=== PATIENT | female | born 1965 ===

== ENCOUNTER → 2020-01-14 08:23 | Outpatient (BNVA) | payer OTHER, SELFPAY | PROVIDERS: PCP Internal Medicine; Visit Provider Dietitian, Registered | DX: Z76.89 Persons encountering health services in other specified circumstances (principal) ==

== ENCOUNTER → 2020-02-15 08:16 | Outpatient (BNVA) | payer OTHER, SELFPAY | PROVIDERS: PCP Internal Medicine; Visit Provider Physician Assistant | DX: Z76.89 Persons encountering health services in other specified circumstances (principal) ==

== ENCOUNTER → 2020-03-01 11:33 | Outpatient (BNVA) | payer OTHER, SELFPAY | PROVIDERS: Visit Provider Dietitian, Registered | DX: Z76.89 Persons encountering health services in other specified circumstances (principal) ==

== ENCOUNTER → 2020-03-21 08:20 | Outpatient (BNVA) | payer OTHER, SELFPAY | PROVIDERS: PCP Internal Medicine; Visit Provider Physician Assistant | DX: Z76.89 Persons encountering health services in other specified circumstances (principal) ==

== ENCOUNTER → 2020-05-10 14:35 | Outpatient (BNVA) | payer OTHER, SELFPAY | PROVIDERS: PCP Internal Medicine; Visit Provider Dietitian, Registered ==

== ENCOUNTER → 2020-06-07 14:51 | Outpatient (BNVA) | payer OTHER, SELFPAY | PROVIDERS: PCP Internal Medicine; Visit Provider Dietitian, Registered ==

== ENCOUNTER 2020-06-13 10:42 | Outpatient (REF) | payer OTHER, SELFPAY ==
--- NOTE | ~2020-06-13 | XR_ITS ---
EXAMINATION: XR LUMBOSACRAL SPINE CLINICAL INFORMATION: Low back pain COMPARISON: Previous exam November 2018 TECHNIQUE: Three views of the lumbosacral spine. FINDINGS: Bone alignment is normal. No fracture or dislocation is seen. There is mild multilevel degenerative spondylosis. There is disc space narrowing at T12-L1 and L1-L2. There is lower lumbar spine facet arthritis. XR/XR lumbar spine 2-3V IMPRESSION: Degenerative changes.
[2020-06-13 11:43] LABS: MANUAL DIFF FLAG NO
[2020-06-13 11:49] LABS: Basophils Percent Auto 0.4 % (0-2); Eosinophils Absolute Auto 0.2 X10*3/uL (0.0-0.4); Eosinophils Percent Auto 3.5 % (0-4); Hematocrit 42.3 % (37-47); Imm Gran Abs Auto 0.01 X10*3/uL (0.00-0.03); Imm Gran Pct Auto 0.2 % (0.0-0.4); Lymphocytes Absolute Auto 1.6 X10*3/uL (1.2-4.9); Lymphocytes Percent Auto 35.4 % (20-40); Mean Corpuscular HGB Conc 33.1 g/dl (31.0-35.0); Mean Corpuscular Volume 93.6 fL (80-98); Mean Platelet Volume 9.6 fL (9.4-12.3); Monocytes Absolute Auto 0.5 X10*3/uL (0.1-1.2); Monocytes Percent Auto 10.2 % (2-11); Neutrophils Absolute Auto 2.3 X10*3/uL (2.0-8.3); Neutrophils Percent Auto 50.3 % (45-73); Platelet Count 211 X10*3/uL (160-400); Red Blood Count 4.52 X10*6/uL (4.20-5.50); Red Cell Distribution Width 13.2 % (11.0-16.0); White Blood Count 4.5 X10*3/uL (4.8-10.8)
[2020-06-13 12:24] LABS: Alanine Aminotransferase 25 U/L (0-31); Alkaline Phosphatase 58 U/L (39-117); Anion Gap 11 (12-20); Aspartate Amino Transferase 20 U/L (5-31); Bilirubin Total 0.7 mg/dL (0.0-1.0); Blood Urea Nitrogen 19 mg/dL (9-16); Carbon Dioxide 29 mmol/L (22-29); Chloride 106 mmol/L (96-108); Cholesterol 222 mg/dL; Estimated Glomerular Filt Rate > 60; Glucose Fasting 110 mg/dL (60-99); HDL Cholesterol 49 mg/dL; LDL Cholesterol Calculated 157 mg/dl; Potassium 4.1 mmol/L (3.3-5.1); Sodium 142 mmol/L (135-145); Total Protein 6.5 g/dL (6.5-8.0); Triglycerides 83 mg/dL
[2020-06-13 13:06] LABS: Folate 13.6 ng/mL (> or = 4.0); Vitamin B12 332 pg/mL (200-900)
[2020-06-17 11:57] LABS: Vitamin B1 8 nmol/L (8-30)
[2020-06-18 12:56] LABS: Vitamin D 25-OH, D2 <4 ng/mL; Vitamin D 25-OH, D3 48 ng/mL; Vitamin D 25-OH, Total 48 ng/mL (30-100)
== END 2020-06-13 10:43 | disposition home or self-care (01) ==
LOC: HO.LAB 10:42
PROVIDERS: PCP Internal Medicine; Visit Provider Internal Medicine
DX: E51.9 Thiamine deficiency, unspecified (principal); E53.8 Deficiency of other specified B group vitamins; I10 Essential (primary) hypertension; E78.00 Pure hypercholesterolemia, unspecified; M54.5 Low back pain; E78.5 Hyperlipidemia, unspecified; E55.9 Vitamin D deficiency, unspecified
CPT/HCPCS: 36415; 72100; 80053; 80061; 82306; 82607; 82746; 84425; 85025

== ENCOUNTER 2020-07-19 09:31 | Outpatient (REF) | payer OTHER, SELFPAY ==
--- NOTE | ~2020-07-19 | MM_ITS ---
EXAMINATION: MM SCREENING DIGITAL BREAST TOMOSYNTHESIS, BILATERAL CLINICAL INFORMATION: Screening. Asymptomatic. The lifetime risk of breast cancer based on the Tyrer-Cuzick Model is 7%. COMPARISON: Mammography: 11/07/2018, 10/08/2017, 04/27/2016 TECHNIQUE: Digital breast tomosynthesis is performed in both the craniocaudal and mediolateral oblique views along with computer-aided detection (CAD). Synthesized 2D images are generated from the tomosynthesis. FINDINGS: There are scattered areas of fibroglandular density (ACR BI-RADS breast composition Category b). There are no significant masses, abnormal calcifications, or other abnormalities. Parenchymal pattern is similar to prior studies. No developing density. No significant changes. MM/MM tomosynthesis screening BI IMPRESSION: No mammographic evidence of malignancy. ASSESSMENT: BI-RADS 1: Negative RECOMMENDATION: Routine annual mammography screening. This patient's information was entered into a reminder system with a target due date for their next mammogram.
== END 2020-07-19 09:32 | disposition home or self-care (01) ==
LOC: HO.MAMMO 09:31
PROVIDERS: PCP Internal Medicine; Visit Provider Internal Medicine
DX: Z12.31 Encounter for screening mammogram for malignant neoplasm of breast (principal)
CPT/HCPCS: 77063; 77067

== ENCOUNTER → 2020-07-29 08:17 | Outpatient (BNVA) | payer OTHER, SELFPAY | PROVIDERS: PCP Internal Medicine; Visit Provider Physician Assistant ==

== ENCOUNTER 2020-10-04 12:07 | Outpatient (REF) | payer OTHER, SELFPAY ==
[2020-10-04 13:21] LABS: MANUAL DIFF FLAG NO
[2020-10-04 13:30] LABS: Basophils Percent Auto 0.6 % (0-2); Eosinophils Absolute Auto 0.1 X10*3/uL (0.0-0.4); Eosinophils Percent Auto 2.1 % (0-4); Hemoglobin 14.4 g/dl (12.0-16.0); Imm Gran Abs Auto 0.01 X10*3/uL (0.00-0.03); Imm Gran Pct Auto 0.2 % (0.0-0.4); Lymphocytes Absolute Auto 1.3 X10*3/uL (1.2-4.9); Lymphocytes Percent Auto 27.9 % (20-40); Mean Corpuscular HGB Conc 32.7 g/dl (31.0-35.0); Mean Corpuscular Hemoglobin 30.6 pg (27.0-33.0); Mean Corpuscular Volume 93.6 fL (80-98); Mean Platelet Volume 9.7 fL (9.4-12.3); Monocytes Absolute Auto 0.4 X10*3/uL (0.1-1.2); Monocytes Percent Auto 8.9 % (2-11); Neutrophils Absolute Auto 2.8 X10*3/uL (2.0-8.3); Neutrophils Percent Auto 60.3 % (45-73); Platelet Count 224 X10*3/uL (160-400); Red Cell Distribution Width 13.2 % (11.0-16.0); White Blood Count 4.7 X10*3/uL (4.8-10.8)
[2020-10-04 13:34] LABS: Estimated Average Glucose 105 mg/dL; Hemoglobin A1c % 5.3 %
[2020-10-04 13:43] LABS: Alanine Aminotransferase 21 U/L (0-31); Albumin Level 4.3 g/dL (3.5-5.0); Alkaline Phosphatase 68 U/L (39-117); Anion Gap 9 (12-20); Aspartate Amino Transferase 21 U/L (5-31); Bilirubin Total 0.8 mg/dL (0.0-1.0); Blood Urea Nitrogen 19 mg/dL (9-16); Calcium 9.5 mg/dL (8.4-10.2); Carbon Dioxide 28 mmol/L (22-29); Chloride 110 mmol/L (96-108); Cholesterol 214 mg/dL; Estimated Glomerular Filt Rate > 60; Glucose Fasting 100 mg/dL (60-99); HDL Cholesterol 53 mg/dL; LDL Cholesterol Calculated 145 mg/dl; Potassium 4.8 mmol/L (3.3-5.1); Sodium 142 mmol/L (135-145); Total Protein 6.9 g/dL (6.5-8.0); Triglycerides 83 mg/dL
[2020-10-04 13:49] LABS: C Reactive Protein 0.38 mg/dL (< or = 0.50); Iron 107 mcg/dL (30-160); Percent Iron Saturation 37 % (15-50); Total Iron Binding Capacity 289 mcg/dL (228-428); Unsaturated Iron Binding 182 ug/dL
[2020-10-04 13:56] LABS: Ferritin 140 ng/mL (10-250); TSH reflex Free T4 1.66 uIU/mL (0.32-4.0)
[2020-10-04 14:18] LABS: Folate 13.8 ng/mL (> or = 4.0); Vitamin B12 390 pg/mL (200-900)
[2020-10-05 09:31] LABS: Insulin Level Total 14.7 uIU/mL
[2020-10-05 14:27] LABS: Calcium (PTHI) 9.2 mg/dL (8.6-10.4); PTHI 43 pg/mL (14-64)
[2020-10-07 01:16] LABS: Zinc 74 mcg/dL (60-130)
[2020-10-08 15:22] LABS: Vitamin D 25-OH, D2 <4 ng/mL; Vitamin D 25-OH, D3 39 ng/mL; Vitamin D 25-OH, Total 39 ng/mL (30-100)
[2020-10-09 00:12] LABS: Vitamin A 39 mcg/dL (38-98)
[2020-10-12 12:27] LABS: Vitamin B1 8 nmol/L (8-30)
== END 2020-10-04 12:08 | disposition home or self-care (01) ==
LOC: HO.LAB 12:07
PROVIDERS: Physician Assistant; PCP Internal Medicine; Visit Provider Internal Medicine
DX: I10 Essential (primary) hypertension (principal); E78.5 Hyperlipidemia, unspecified; E55.9 Vitamin D deficiency, unspecified; E66.01 Morbid (severe) obesity due to excess calories
CPT/HCPCS: 36415; 80053; 80061; 82306; 82607; 82728; 82746; 83036; 83525; 83540; 83970; 84425; 84443; 84590; 84630; 85025; 86140

== ENCOUNTER 2020-12-26 11:30 | Outpatient (RCR) | payer OTHER, SELFPAY ==
--- NOTE | 2021-01-10 07:11 | MHC.OT.DC ---
[address] [phone] F: [phone] Occupational Therapy Discharge Note Provider: Dr Galileo Loya Diagnosis: Bilateral hand pain Date of Evaluation: 12/21/20 Date of Discharge: 01/10/21 Treatments to Date: 2 Discharge Status: Patient Elected to Stop Discharge Summary: Jason was seen for occupational therapy to address bilateral hand pain. On assessment, she is observed to have flat affect, forward rounded posture with ambulation and in sitting and grimaces with light movement. She was unable to complete 50% AROM on initial eval, but on return visit could demo full shoulder AROM against gravity. We have initiated light strengthening program and discussed importance of daily movement of the body. She has been givien ROM and genlte hand strengthening exercies, but at this time hand pain is likely due to poor posture and decreaed core and trunk strength. She has self discharged at this time, noting therapy is not helping . Electronically Signed By: Clarice Marshall OTR/L Please Sign and return to therapist, thank you for your referral.
== END 2021-01-10 07:13 | disposition home or self-care (01) ==
LOC: HO.OT 11:30
PROVIDERS: PCP Internal Medicine; Visit Provider Internal Medicine
DX: M79.643 Pain in unspecified hand (principal)
CPT/HCPCS: 97110; 97166

== ENCOUNTER 2021-03-30 15:09 | Outpatient (REF) | payer OTHER, SELFPAY ==
[2021-03-30 15:28] LABS: MANUAL DIFF FLAG NO
[2021-03-30 16:38] LABS: Basophils Percent Auto 0.8 % (0-2); Eosinophils Absolute Auto 0.1 X10*3/uL (0.0-0.4); Eosinophils Percent Auto 1.8 % (0-4); Hematocrit 43.6 % (37.0-47.0); Hemoglobin 14.3 g/dl (12.0-16.0); Imm Gran Abs Auto 0.01 X10*3/uL (0.00-0.03); Imm Gran Pct Auto 0.2 % (0.0-0.4); Lymphocytes Absolute Auto 1.4 X10*3/uL (1.2-4.9); Mean Corpuscular HGB Conc 32.8 g/dl (31.0-35.0); Mean Corpuscular Hemoglobin 30.5 pg (27.0-33.0); Mean Platelet Volume 10.2 fL (9.4-12.3); Monocytes Absolute Auto 0.5 X10*3/uL (0.1-1.2); Monocytes Percent Auto 8.8 % (2-11); Neutrophils Absolute Auto 3.1 x10*3/uL (2.0-8.3); Neutrophils Percent Auto 60.4 % (45-73); Platelet Count 214 X10*3/uL (160-400); Red Blood Count 4.69 X10*6/uL (4.20-5.50); Red Cell Distribution Width 13.3 % (11.0-16.0); White Blood Count 5.1 X10*3/uL (4.8-10.8)
[2021-03-30 17:11] LABS: Alanine Aminotransferase 21 U/L (0-31); Albumin Level 4.2 g/dL (3.5-5.0); Alkaline Phosphatase 68 U/L (39-117); Anion Gap 12 (12-20); Aspartate Amino Transferase 22 U/L (5-31); Bilirubin Total 0.9 mg/dL (0.0-1.0); Blood Urea Nitrogen 21 mg/dL (9-16); Calcium 9.7 mg/dL (8.4-10.2); Carbon Dioxide 27 mmol/L (22-29); Chloride 107 mmol/L (96-108); Cholesterol 211 mg/dL; Estimated Glomerular Filt Rate > 60; Glucose Fasting 83 mg/dL (60-99); HDL Cholesterol 47 mg/dL; LDL Cholesterol Calculated 147 mg/dl; Potassium 4.2 mmol/L (3.3-5.1); Sodium 142 mmol/L (135-145); Total Protein 7.2 g/dL (6.5-8.0); Triglycerides 85 mg/dL
[2021-04-05 14:15] LABS: Vitamin D 25-OH, D2 <4 ng/mL; Vitamin D 25-OH, D3 36 ng/mL; Vitamin D 25-OH, Total 36 ng/mL (30-100)
== END 2021-03-30 15:10 | disposition home or self-care (01) ==
LOC: HO.LAB 15:09
PROVIDERS: PCP Internal Medicine; Visit Provider Internal Medicine
DX: E66.9 Obesity, unspecified (principal); E55.9 Vitamin D deficiency, unspecified; E78.5 Hyperlipidemia, unspecified
CPT/HCPCS: 36415; 80053; 80061; 82306; 85025

== ENCOUNTER 2021-09-25 12:06 | Outpatient (REF) | payer OTHER, SELFPAY ==
--- NOTE | ~2021-09-25 | XR_ITS ---
EXAMINATION: BILATERAL KNEE X-RAY CLINICAL INFORMATION: Pain COMPARISON: Previous right knee x-ray from 2010 TECHNIQUE: 3 views of each knee FINDINGS: Right: Bone alignment is normal. No fracture or dislocation is seen. There are mild degenerative changes at the medial femoral tibial and patellofemoral joints with small osteophytes. There is a small osteophyte at the quadriceps tendon insertion to the patella. There is no joint effusion. Left: Bone alignment is normal. No fracture or disc there are mild degenerative changes at the patellofemoral joint with small osteophytes. There is a small osteophyte at the quadriceps tendon insertion to the patella. There is no joint effusion. XR/XR knee LT 3V IMPRESSION: Mild degenerative changes.
--- NOTE | ~2021-09-25 | XR_ITS ---
EXAMINATION: XR LUMBOSACRAL SPINE CLINICAL INFORMATION: Spondylosis COMPARISON: Previous x-ray most recent June 2020 TECHNIQUE: 3 views of the lumbar spine FINDINGS: Bone alignment is normal. No fracture or dislocation is seen. Degenerative disc disease at T12-L1 and L1-L2 and L2-L3. There is lower lumbar spine facet arthritis. There are degenerative changes of visualized lower thoracic spine. XR/XR lumbar spine 2-3V IMPRESSION: Degenerative changes.
--- NOTE | ~2021-09-25 | XR_ITS ---
EXAMINATION: BILATERAL KNEE X-RAY CLINICAL INFORMATION: Pain COMPARISON: Previous right knee x-ray from 2010 TECHNIQUE: 3 views of each knee FINDINGS: Right: Bone alignment is normal. No fracture or dislocation is seen. There are mild degenerative changes at the medial femoral tibial and patellofemoral joints with small osteophytes. There is a small osteophyte at the quadriceps tendon insertion to the patella. There is no joint effusion. Left: Bone alignment is normal. No fracture or disc there are mild degenerative changes at the patellofemoral joint with small osteophytes. There is a small osteophyte at the quadriceps tendon insertion to the patella. There is no joint effusion. XR/XR knee RT 3V IMPRESSION: Mild degenerative changes.
[2021-09-25 12:21] LABS: MANUAL DIFF FLAG NO
[2021-09-25 13:23] LABS: Basophils Percent Auto 0.7 % (0-2); Eosinophils Absolute Auto 0.1 X10*3/uL (0.0-0.4); Eosinophils Percent Auto 2.4 % (0-4); Hematocrit 44.9 % (37.0-47.0); Hemoglobin 14.8 g/dl (12.0-16.0); Imm Gran Abs Auto 0.01 X10*3/uL (0.00-0.03); Imm Gran Pct Auto 0.2 % (0.0-0.4); Lymphocytes Absolute Auto 1.1 X10*3/uL (1.2-4.9); Lymphocytes Percent Auto 25.2 % (20-40); Mean Corpuscular Hemoglobin 30.4 pg (27.0-33.0); Mean Corpuscular Volume 92.2 fL (80.0-98.0); Monocytes Absolute Auto 0.4 X10*3/uL (0.1-1.2); Monocytes Percent Auto 9.5 % (2-11); Neutrophils Absolute Auto 2.8 x10*3/uL (2.0-8.3); Platelet Count 249 X10*3/uL (160-400); Red Blood Count 4.87 X10*6/uL (4.20-5.50); Red Cell Distribution Width 13.1 % (11.0-16.0); White Blood Count 4.5 X10*3/uL (4.8-10.8)
[2021-09-25 13:40] LABS: C Reactive Protein 0.42 mg/dL (< or = 0.50); Rheumatoid Factor < 15.0 IU/mL (<15.0)
[2021-09-25 14:29] LABS: Erythrocyte Sedimentation Rate 6 MM/HR (0-20)
[2021-09-27 22:03] LABS: ANA Titer 2 1:40 titer; Anti Nuclear Antibody Screen POSITIVE (NEGATIVE); Anti Nuclear Antibody Titer 1:40 titer
[2021-09-28 14:11] LABS: Cyclic Citrullinated Peptide <16 UNITS
== END 2021-09-25 12:07 | disposition home or self-care (01) ==
LOC: HO.LAB 12:06
PROVIDERS: PCP Internal Medicine; Visit Provider Internal Medicine Rheumatology
DX: M25.50 Pain in unspecified joint (principal); M47.816 Spondylosis without myelopathy or radiculopathy, lumbar region; M25.561 Pain in right knee; M25.562 Pain in left knee
CPT/HCPCS: 36415; 72100; 73562; 85025; 85652; 86038; 86039; 86140; 86200; 86431; 99202

== ENCOUNTER 2021-10-18 11:42 | Outpatient (REF) | payer OTHER, SELFPAY ==
[2021-10-18 13:11] LABS: Creatinine Urine 254.84 mg/dL; Protein/Creatinine Ratio, Ur 0.04 (<0.2); Total Protein Urine Random 11 mg/dL (<12)
[2021-10-18 13:17] LABS: Estimated Glomerular Filt Rate > 60
[2021-10-20 14:03] LABS: Anti DNA DS Antibody 2 IU/mL; SM/Ribonucleoprotein Ab <1.0 NEG AI (<1.0 NEG); Smith Protein <1.0 NEG AI (<1.0 NEG)
== END 2021-10-18 11:43 | disposition home or self-care (01) ==
LOC: HO.LAB 11:42
PROVIDERS: PCP Internal Medicine; Visit Provider Internal Medicine Rheumatology
DX: R76.8 Other specified abnormal immunological findings in serum (principal); M47.816 Spondylosis without myelopathy or radiculopathy, lumbar region; M17.0 Bilateral primary osteoarthritis of knee; M79.7 Fibromyalgia; I10 Essential (primary) hypertension; E53.8 Deficiency of other specified B group vitamins
CPT/HCPCS: 36415; 82565; 84156; 86225; 86235; 99212

== ENCOUNTER 2021-11-16 10:19 | Outpatient (REF) | payer OTHER, SELFPAY ==
[2021-11-16 11:35] LABS: Alanine Aminotransferase 22 U/L (0-31); Albumin Level 4.1 g/dL (3.5-5.0); Alkaline Phosphatase 69 U/L (39-117); Anion Gap 12 (12-20); Aspartate Amino Transferase 20 U/L (5-31); Bilirubin Total 0.6 mg/dL (0.0-1.0); Blood Urea Nitrogen 18 mg/dL (9-16); Calcium 9.1 mg/dL (8.4-10.2); Carbon Dioxide 25 mmol/L (22-29); Chloride 110 mmol/L (96-108); Cholesterol 204 mg/dL; Estimated Glomerular Filt Rate > 60; Glucose Fasting 111 mg/dL (60-99); HDL Cholesterol 46 mg/dL; LDL Cholesterol Calculated 143 mg/dl; Potassium 4.4 mmol/L (3.3-5.1); Sodium 143 mmol/L (135-145); Total Protein 6.8 g/dL (6.5-8.0); Triglycerides 75 mg/dL
[2021-11-16 11:57] LABS: Vitamin D 25-OH Total 31.3 ng/mL (>30)
[2021-11-16 12:08] LABS: Protein/Creatinine Ratio, Ur 0.04 (<0.2); Total Protein Urine Random 10 mg/dL (<12)
[2021-11-16 12:24] LABS: Folate 11.2 ng/mL (> or = 4.0); Vitamin B12 300 pg/mL (200-900)
[2021-11-18 08:32] LABS: Anti DNA DS Antibody 2 IU/mL; SM/Ribonucleoprotein Ab <1.0 NEG AI (<1.0 NEG); Smith Protein <1.0 NEG AI (<1.0 NEG)
== END 2021-11-16 10:20 | disposition home or self-care (01) ==
LOC: HO.LAB 10:19
PROVIDERS: Internal Medicine Rheumatology; PCP Internal Medicine; Visit Provider Internal Medicine
DX: E78.5 Hyperlipidemia, unspecified (principal); E55.9 Vitamin D deficiency, unspecified; E53.8 Deficiency of other specified B group vitamins; G43.009 Migraine without aura, not intractable, without status migrainosus; R76.8 Other specified abnormal immunological findings in serum
CPT/HCPCS: 36415; 80053; 80061; 82306; 82607; 82746; 84156; 86225; 86235

== ENCOUNTER 2022-07-09 14:24 | Outpatient (REF) | payer OTHER, SELFPAY ==
--- NOTE | ~2022-07-09 | XR_ITS ---
EXAMINATION: XR KNEE, RIGHT CLINICAL INFORMATION: Pain. COMPARISON: Radiographs dated 09/11/2009. TECHNIQUE: AP and lateral views of the right knee. FINDINGS: Bony alignment and mineralization are normal. The lateral, medial and patellofemoral joint space compartments are well-maintained. There is mild peripheral osteophyte formation of the lateral and patellofemoral compartments. There is a moderate joint effusion. A 4 mm loose body is seen within the medial joint space compartment. No fracture or dislocation is seen. There is no significant varus or valgus configuration. There is no foreign body. XR/XR knee RT 2V IMPRESSION: 1. There is mild osteoarthritic change of the lateral and patellofemoral joint space compartments. 2. There is a moderate right knee joint effusion. 3. A 4 mm loose body is noted. 4. There is no significant varus or valgus configuration.
[2022-07-09 16:17] LABS: Alanine Aminotransferase 22 U/L (0-31); Alkaline Phosphatase 71 U/L (39-117); Anion Gap 14 (12-20); Aspartate Amino Transferase 20 U/L (5-31); Blood Urea Nitrogen 19 mg/dL (9-16); Calcium 9.3 mg/dL (8.4-10.2); Carbon Dioxide 24 mmol/L (22-29); Chloride 109 mmol/L (96-108); Cholesterol 226 mg/dL; Estimated Glomerular Filt Rate > 60; Glucose Fasting 95 mg/dL (60-99); HDL Cholesterol 49 mg/dL; LDL Cholesterol Calculated 158 mg/dl; Potassium 4.5 mmol/L (3.3-5.1); Sodium 142 mmol/L (135-145); Total Protein 6.8 g/dL (6.5-8.0); Triglycerides 97 mg/dL
== END 2022-07-09 14:25 | disposition home or self-care (01) ==
LOC: HO.XRAY 14:24
PROVIDERS: PCP Internal Medicine; Visit Provider Internal Medicine
DX: Z00.00 Encounter for general adult medical examination without abnormal findings (principal); M25.561 Pain in right knee; E55.9 Vitamin D deficiency, unspecified; E78.5 Hyperlipidemia, unspecified
CPT/HCPCS: 36415; 73560; 80053; 80061; 82306

== ENCOUNTER 2022-07-10 10:47 | Outpatient (REF) | payer OTHER, SELFPAY ==
--- NOTE | ~2022-07-10 | MM_ITS ---
EXAMINATION: MM SCREENING DIGITAL BREAST TOMOSYNTHESIS, BILATERAL CLINICAL INFORMATION: Screening. Asymptomatic. The lifetime risk of breast cancer based on the Tyrer-Cuzick Model is 6.3%. COMPARISON: Mammography: July 19, 2020 and studies dating back to April 27, 2016 TECHNIQUE: Digital breast tomosynthesis is performed in both the craniocaudal and mediolateral oblique views along with computer-aided detection (CAD). Synthesized 2D images are generated from the tomosynthesis. FINDINGS: There are scattered areas of fibroglandular density (ACR BI-RADS breast composition Category b). There are no significant masses, abnormal calcifications, or other abnormalities. MM/MM tomosynthesis screening BI IMPRESSION: No significant changes from prior exam. ASSESSMENT: BI-RADS 1: Negative RECOMMENDATION: Routine annual mammography screening. This patient's information was entered into a reminder system with a target due date for their next mammogram.
== END 2022-07-10 10:48 | disposition home or self-care (01) ==
LOC: HO.MAMMO 10:47
PROVIDERS: PCP Internal Medicine; Visit Provider Internal Medicine
DX: Z12.31 Encounter for screening mammogram for malignant neoplasm of breast (principal)
CPT/HCPCS: 77063; 77067

== ENCOUNTER → 2022-07-20 10:48 | Outpatient (BNVA) | payer OTHER, SELFPAY | PROVIDERS: PCP Internal Medicine; Visit Provider Orthopaedic Surgery | DX: M17.11 Unilateral primary osteoarthritis, right knee (principal); M25.461 Effusion, right knee | CPT/HCPCS: 99202 ==

== ENCOUNTER 2022-10-02 11:19 | Emergency (ER) | payer OTHER, SELFPAY ==
--- NOTE | ~2022-10-02 | CT_ITS ---
EXAMINATION: CT ABDOMEN AND PELVIS WITH CONTRAST CLINICAL INFORMATION: Right upper quadrant pain COMPARISON: None available. TECHNIQUE: Multidetector volumetric images were obtained from the superior aspect of the liver through the pubic symphysis following administration 85 mL of Omnipaque 350 intravenous contrast. Sagittal and coronal reformatted images were obtained on the technologist's workstation. Oral contrast: Yes This CT examination was performed using dose optimization techniques as appropriate, variously including the following: *Automated exposure control *Adjustment of mA and/or kV according to patient size (this includes techniques or standardized protocols for targeted exams where dose is matched to indication/reason for exam; i.e. extremities or head) *Use of iterative reconstruction technique DLP: 717 mGy-cm FINDINGS: LUNG BASES: The visualized lung bases are unremarkable. LIVER, GALLBLADDER, AND BILIARY TREE: Fatty liver. Cholecystectomy. No biliary duct dilatation. PANCREAS: Unremarkable. SPLEEN: Unremarkable. ADRENAL GLANDS: Unremarkable. KIDNEYS AND URETERS: Excreted contrast in the collecting systems. Left renal peripelvic cysts. No imaging follow-up recommended. BLADDER: Unremarkable. GASTROINTESTINAL TRACT: The small and large bowel are unremarkable. The appendix is unremarkable. Postsurgical changes from gastric sleeve. Suture line seen above the diaphragm suggestive of an esophageal hernia. No fluid collection. No free air ABDOMINAL WALL: No significant hernia is appreciated. Postsurgical changes. LYMPH NODES: Normal. VASCULAR: Unremarkable. PELVIC VISCERA: Unremarkable. OSSEOUS STRUCTURES: Degenerative changes of the spine. CT/CT abdomen pelvis w IV con IMPRESSION: Postsurgical changes from gastric sleeve. Esophageal hernia. Fatty liver. Fleischner guidelines were followed.
[2022-10-02 11:21] VITALS: BP 146/82; PULSE 70; RESP 16; TEMP 36; O2SAT 96; BMI 32.5
--- NOTE | 2022-10-02 11:22 | ED_ITS ---
HPI - General Adult General Chief complaint: Abdominal Pain Stated complaint: abd pain, vomiting with blood Time Seen by Provider: 10/02/22 12:51 Source: patient, RN notes reviewed and old records reviewed Mode of arrival: ambulatory Limitations: no limitations History of Present Illness HPI narrative: Patient is a 56-year-old female with history of HTN, fibromyalgia, gastric banding with subsequent removal, sleeve gastrectomy, hiatal hernia repair, cholecystectomy presenting with right upper quadrant abdominal pain, nausea, and vomiting since yesterday evening. States pain radiates to back. She reports one episode of black stool several days ago. Reports emesis this morning was brown and coffee colored as well as blood tinged. She denies bright red rectal bleeding. She states pain is currently 9/10, has ongoing nausea. Reports some fatigue, denies dizziness or lightheadedness. Denies syncope. Denies chest pain or dyspnea. Denies back or flank pain. Denies dysuria, hematuria, or other urinary symptoms. MD complaint: RUQ abdominal pain Onset (ago): day(s) Location: abdomen Radiation: back Severity: severe Severity scale (1-10): 9 Quality: stabbing Pain Consistency: constant Relieving factors: rest Exacerbating factors: movement Associated symptoms: nausea/vomiting and weakness (fatigue) Treatments prior to arrival: none Related Data Home Medications Medication Instructions Recorded Confirmed amitriptyline 25 mg tablet 25 mg PO DAILY 01/13/20 07/09/22 buspirone 10 mg tablet 10 mg PO BID 01/13/20 07/09/22 prazosin 5 mg capsule 5 mg PO BEDTIME 01/13/20 07/09/22 clonazepam 1 mg tablet 1 mg PO BEDTIME PRN 06/27/21 07/09/22 escitalopram oxalate 10 mg tablet 10 mg PO DAILY 06/27/21 07/09/22 Previous Rx's Medication Instructions Recorded mecobalamin (vitamin B12) 1,000 1,000 mcg PO DAILY #30 tabs 10/20/20 mcg chewable tablet Shower Chair #1 ea 06/27/21 dicyclomine 20 mg tablet 20 mg PO QID 30 days #120 tabs 06/27/21 simethicone 80 mg chewable tablet 80 mg PO .four times a day PRN 11/13/21 abdominal distention 30 days #120 tabs albuterol sulfate 90 mcg/actuation 1 puff PO Q4H PRN bronchospasm 90 12/11/21 aerosol inhaler days #8.5 grams fluticasone propionate 44 1 puff inhalation BID 30 days 01/12/22 mcg/actuation HFA aerosol inhaler #10.6 grams (Flovent HFA) pantoprazole 40 mg tablet,delayed 40 mg PO DAILY 90 days #90 tabs 06/08/22 release cholecalciferol (vitamin D3) 25 25 mcg PO DAILY 90 days #90 caps 07/03/22 mcg (1,000 unit) capsule hydrochlorothiazide 25 mg tablet 25 mg PO QAM #90 tabs 07/04/22 sumatriptan succinate 50 mg tablet 50 mg PO DAILY PRN for migraine #9 07/04/22 tabs meloxicam 15 mg tablet 15 mg PO DAILY 90 days #90 tabs 07/09/22 gabapentin 600 mg tablet 600 mg PO TID 90 days #270 tabs 08/26/22 lidocaine 5 % topical patch 1 patch topical DAILY 30 days #30 08/26/22 ea simvastatin 10 mg tablet 10 mg PO BEDTIME 90 days #90 tabs 08/26/22 multivitamin with folic acid 400 1 tab PO DAILY 90 days #90 tabs 08/30/22 mcg tablet (Tab-A-Ananda) methocarbamol 750 mg tablet 750 mg PO Q8H 30 days #90 tabs 09/16/22 ondansetron 4 mg disintegrating 4 mg PO Q8H PRN nausea and 10/02/22 tablet vomiting #10 tabs Allergies Allergy/AdvReac Type Severity Reaction Status Date / Time acetaminophen [From Tylenol] Allergy Intermediate Hives Verified 10/02/22 11:23 aloe Allergy Intermediate Rash Verified 10/02/22 11:23 duloxetine [From Cymbalta] Allergy Intermediate Rash, Verified 10/02/22 11:23 Itching lavender (Lavandula Allergy Intermediate Rash Verified 10/02/22 11:23 angustifolia) seafood Allergy Intermediate Rash Verified 10/02/22 11:23 Sulfa (Sulfonamide Allergy Intermediate rash Verified 10/02/22 11:23 Antibiotics) codeine Allergy Mild ITCH Verified 10/02/22 11:23 [From Tylenol-Codeine] Iodinated Contrast Media Allergy Mild ITCH AND Verified 10/02/22 11:23 [IV Dye, Iodine Containing] RASH latex [LATEX] Allergy Mild RASH Verified 10/02/22 11:23 Review of Systems Review of Systems: As per HPI. Yes all other systems are reviewed and are negative Constitutional: Constitutional: Reports as per HPI [facility] Past Medical History Medical History B12 deficiency Essential hypertension Fibromyalgia Hand pain Hypovitaminosis D Insomnia Intestinal malabsorption following gastrectomy Low back pain Migraines Mild recurrent major depression Neuropathy Obesity with body mass index (BMI) of 30.0 to 39.9 Osteoarthritis of back Osteoarthritis of lumbar spine Physical exam Polyarthralgia Pre-diabetes Pure hypercholesterolemia Thiamine deficiency Surgical History History of removal of laparoscopic gastric banding device History of repair of hiatal hernia History of sleeve gastrectomy Hx of section Hx of cholecystectomy Hx of laparoscopic adjustable gastric banding S/P laparoscopic sleeve gastrectomy S/P ANA-BSO Family History Family History Father Murder Mother Diabetes Hypertension Brother Diabetes Hypertension Son No problems noted. Other Mental health disorder Social History Social History Housing: Apartment Housing Other:: complex housing Alcohol intake: never Patient Tobacco Use Status: Former Tobacco user Tobacco use type: Cigarette Smoked in Last 30 Days: No e-Cigarette/Vaping Use: Never Used Second Hand Smoke Exposure: No Use of substances other than those prescribed or required for medical reasons: No Advance Directives: No Advance Directives Information Provided: Yes Patient : No service: No Current occupational status: disabled Cognitive needs: Yes Hearing needs: No Vision needs: No Physical Exam ED Vital Signs: Vital Signs - 24 hr 10/02/22 11:21 10/02/22 13:47 10/02/22 14:59 Temperature 96.8 F 98.2 F 97.7 F Pulse Rate 70 58 61 Respiratory Rate 16 16 14 Blood Pressure 146/82 H 130/67 165/93 H Pulse Oximetry 96 95 100 Oxygen Delivery Method Room Air Room Air Room Air 10/02/22 16:21 Temperature 97.8 F Pulse Rate 62 Respiratory Rate 20 Blood Pressure 115/73 Pulse Oximetry 96 Oxygen Delivery Method Room Air BMI result Body Mass Index 32.5 Vital signs have been reviewed and appear to be correct. Blood pressure elevated. Heart rate normal. Respiratory rate normal. Temperature normal. Oxygen saturation normal. Const General: cooperative, healthy appearing and no acute distress Orientation/consciousness: oriented to person, oriented to place, oriented to time and patient oriented x3 Limitations: no limitations HENMT Head: Yes normocephalic and Yes atraumatic Ears: external ears normal General nose exam: Normal external nose present Face and sinus: Yes face symmetric Mouth: oropharynx normal and moist mucous membranes Throat: Yes uvula midline Eyes Pupils: Equal, round and reactive pupils present Neck Neck: Yes normal visual inspection and Yes supple Resp Effort & Inspection: normal respiratory effort and able to speak in complete sentences Auscultation: clear to auscultation bilaterally Cardio Rate: regular rate Rhythm: regular rhythm Heart sounds: S1 normal heart sound present and S2 normal heart sound present GI Other: Rectal exam chaperoned by Jelena chemistry technical officer. Inspection: Yes normal to inspection, Yes obesity, Yes scar, No visible herniation and No visible pulsation Palpation (GI): Soft to palpation, Tenderness to palpation present (GI) in the RUQ; with no rebound tenderness, no guarding, no hernias and no masses Auscultation: normoactive bowel sounds Rectal Exam - Female: visual inspection normal, normal sphincter tone and No External hemorrhoid(s) present General: Yes no CVA tenderness Back/Spine/Pelvis Back: no CVA tenderness Skin General skin exam: elasticity normal and turgor normal Neuro General: oriented to person, oriented to place, oriented to time, patient oriented x3, moves all extremities, no focal motor deficits and CN's II-XI intact bilaterally Cranial nerves: Yes Equal, round and reactive pupils present Cognition (Neuro): normal cognition Extrem General: Yes full ROM, Yes no pedal edema and Yes no calf tenderness Psych Mental Status: mental status grossly normal Affect: normal affect Thought process: Normal thought process present Course Course Course Narrative: RME- 56 year old female presents for evaluation of upper abdominal pain and vomiting. Reports she is s/p gastric bypass as well as cholecystectomy. She also reports she is vomiting brown like blood. Plan for labs including coags and type and screen. Patient is well appearing with stable vitals 14:59 Urine positive for moderate leukocytes and WBCs, however epithelial cells also present to likely contamination as patient denies any urinary symptoms. Troponin negative, given that symptoms began last night, no necessity for delta trop. No leukocytosis, labs otherwise unremarkable, stool negative for occult blood. 16:40 CT shows fatty liver and esophageal hernia. Discussed results with patient and and all questions answered. Patient states pain and nausea have improved. Will PO challenge and if tolerated feel patient is stable for discharge home with GI and bariatric surgery follow up. Return precautions discussed at bedside. Patient agreeable with plan. Medications Administered Discontinued Medications Generic Name Dose Route Start Last Admin Trade Name Geraldine PRN Reason Stop Dose Admin Barium Sulfate 450 ml 10/02/22 15:54 10/02/22 15:55 Barium Sulfate Oral (Briones) 450 Ml Oral.Susp PO 10/02/22 15:55 450 ml ONCE ONE Administration Diphenhydramine HCl 25 mg 10/02/22 13:27 10/02/22 14:34 Diphenhydramine Hcl 50 Mg/Ml Vial IVPUSH 10/02/22 13:28 25 mg ONCE ONE Administration Famotidine 20 mg 10/02/22 13:27 10/02/22 14:34 Famotidine/Pf 20 Mg/2 Ml Vial IVPUSH 10/02/22 13:28 20 mg ONCE ONE Administration Iohexol 100 ml 10/02/22 15:53 10/02/22 15:54 Iohexol 350 Mg/Ml 100 Ml Infus..Btl IV 10/02/22 15:54 85 ml ONCE ONE Administration Methylprednisolone Sodium Succinate 125 mg 10/02/22 13:27 10/02/22 14:34 Methylprednisolone Sod Succ 125 Mg/2 Ml Vial IVPUSH 10/02/22 13:28 125 mg ONCE ONE Administration Morphine Sulfate 4 mg 10/02/22 12:58 10/02/22 14:35 Morphine Sulfate 4 Mg/Ml Cartridge IVPUSH 10/02/22 12:59 4 mg ONCE ONE Administration Protocol Ondansetron HCl 4 mg 10/02/22 12:58 10/02/22 14:34 Ondansetron Hcl 4 Mg/2 Ml Vial IVPUSH 10/02/22 12:59 4 mg ONCE ONE Administration Medical Decision Making Medical Decision Making MDM Narrative: Patient is a 56-year-old female with history of HTN, fibromyalgia, gastric banding with subsequent removal, sleeve gastrectomy, hiatal hernia repair, cholecystectomy presenting with right upper quadrant abdominal pain, nausea, and vomiting since yesterday evening. On exam patient is awake, A+Ox3, nontoxic appearing, BP mildly elevated, VS otherwise WNL, afebrile, LS CTA, abdomen soft, TTP RUQ, no CVA tenderness. Concern for upper GI bleed, anemia, choledocolithiasis, PUD, obstruction, malignancy/mass. Less likely ACS but will obtain EKG and troponin, pancreatitis but will obtain lipase. Plan: EKG, labs, OBS, CT abdomen/pelvis with PO and IV contrast, pain and nausea control. Patient has allergic reaction of rash to iodinated contrast, will premedicate with benadryl, famotidine and solumedrol. Differential Diagnosis Differential Diagnoses: The differential diagnosis associated with the presen tation includes As above. Admission/Observation Consideration of admission/observation: Escalation of care including admission/ observation considered Considered upon arrival given report of bloody/brown emesis and abdominal pain. Lab Data MDM Lab Attestation statement: I reviewed the patient's lab results. 10/02/22 13:16 10/02/22 13:16 Labs: Lab Results 10/02/22 10/02/22 10/02/22 Range/Units 13:16 13:16 13:16 WBC 4.7 L (4.8-10.8) X10*3/uL RBC 4.61 (4.20-5.50) X10*6/uL Hgb 14.2 (12.0-16.0) g/dl Hct 42.7 (37.0-47.0) % MCV 92.6 (80.0-98.0) fL MCH 30.8 (27.0-33.0) pg MCHC 33.3 (31.0-35.0) g/dl RDW 13.6 (11.0-16.0) % Plt Count 215 (160-400) X10*3/uL MPV 9.5 (9.4-12.3) fL Immature Gran % (Auto) 0.4 (0.0-0.4) % Neut % (Auto) 55.8 (45-73) % Lymph % (Auto) 29.9 (20-40) % [place] % (Auto) 11.0 (2-11) % Eos % (Auto) 2.3 (0-4) % Baso % (Auto) 0.6 (0-2) % Lymph # (Auto) 1.4 (1.2-4.9) X10*3/uL [place] # (Auto) 0.5 (0.1-1.2) X10*3/uL Eos # (Auto) 0.1 (0.0-0.4) X10*3/uL Baso # (Auto) 0.0 (0.0-0.2) X10*3/uL Abs Immat Gran (auto) 0.02 (0.00-0.03) X10*3/uL Absolute Neuts (auto) 2.6 (2.0-8.3) x10*3/uL Absolute Nucleated RBC 0.000 (0.0-0.012) X10*3/uL Nucleated RBC % (auto) 0.0 (0.0-0.2) /100WBC PT 11.4 (10.0-13.1) SEC INR 1.0 (0.9-1.1) APTT 29.4 (26.0-36.4) SEC Sodium 144 (135-145) mmol/L Potassium 4.0 (3.3-5.1) mmol/L Chloride 113 H (96-108) mmol/L Carbon Dioxide 25 (22-29) mmol/L Anion Gap 10 L (12-20) BUN 17 H (9-16) mg/dL Creatinine 0.84 (0.5-1.4) mg/dL Estim Creat Clear Calc 75.5 Estimated GFR > 60 Random Glucose 98 (60-115) mg/dL Calcium 9.2 (8.4-10.2) mg/dL Total Bilirubin 1.0 (0.0-1.0) mg/dL AST 23 (5-31) U/L ALT 25 (0-31) U/L Alkaline Phosphatase 62 (39-117) U/L Troponin I High Sens (<3.5-17.0) ng/L Total Protein 7.0 (6.5-8.0) g/dL Albumin 4.0 (3.5-5.0) g/dL Lipase 30 (8-78) U/L Urine Color Urine Appearance Urine pH (5.0-9.0) Ur Specific [place] (1.005-1.025) Urine Protein (Neg-Trace) mg/dL Urine Glucose (UA) (Negative) mg/dL Urine Ketones (Negative) mg/dL Urine Blood (Negative) Urine Nitrite (Negative) Ur Leukocyte Esterase (Negative) Urine RBC (0-2) /HPF Urine WBC (0-5) /HPF Ur Squamous Epith Cells (0-2) /HPF Urine Bacteria (None Seen) Hyaline Casts (0-2) /LPF Urine Test (NEGATIVE) Stool Occult Blood (NEGATIVE) Blood Type Antibody Screen 10/02/22 10/02/22 10/02/22 Range/Units 13:16 13:38 13:38 WBC (4.8-10.8) X10*3/uL RBC (4.20-5.50) X10*6/uL Hgb (12.0-16.0) g/dl Hct (37.0-47.0) % MCV (80.0-98.0) fL MCH (27.0-33.0) pg MCHC (31.0-35.0) g/dl RDW (11.0-16.0) % Plt Count (160-400) X10*3/uL MPV (9.4-12.3) fL Immature Gran % (Auto) (0.0-0.4) % Neut % (Auto) (45-73) % Lymph % (Auto) (20-40) % [place] % (Auto) (2-11) % Eos % (Auto) (0-4) % Baso % (Auto) (0-2) % Lymph # (Auto) (1.2-4.9) X10*3/uL [place] # (Auto) (0.1-1.2) X10*3/uL Eos # (Auto) (0.0-0.4) X10*3/uL Baso # (Auto) (0.0-0.2) X10*3/uL Abs Immat Gran (auto) (0.00-0.03) X10*3/uL Absolute Neuts (auto) (2.0-8.3) x10*3/uL Absolute Nucleated RBC (0.0-0.012) X10*3/uL Nucleated RBC % (auto) (0.0-0.2) /100WBC PT (10.0-13.1) SEC INR (0.9-1.1) APTT (26.0-36.4) SEC Sodium (135-145) mmol/L Potassium (3.3-5.1) mmol/L Chloride (96-108) mmol/L Carbon Dioxide (22-29) mmol/L Anion Gap (12-20) BUN (9-16) mg/dL Creatinine (0.5-1.4) mg/dL Estim Creat Clear Calc Estimated GFR Random Glucose (60-115) mg/dL Calcium (8.4-10.2) mg/dL Total Bilirubin (0.0-1.0) mg/dL AST (5-31) U/L ALT (0-31) U/L Alkaline Phosphatase (39-117) U/L Troponin I High Sens (<3.5-17.0) ng/L Total Protein (6.5-8.0) g/dL Albumin (3.5-5.0) g/dL Lipase (8-78) U/L Urine Color Yellow Urine Appearance Cloudy Urine pH 6.0 (5.0-9.0) Ur Specific [place] >= 1.030 H (1.005-1.025) Urine Protein Negative (Neg-Trace) mg/dL Urine Glucose (UA) Negative (Negative) mg/dL Urine Ketones Trace (Negative) mg/dL Urine Blood Negative (Negative) Urine Nitrite Negative (Negative) Ur Leukocyte Esterase Moderate (2+) H (Negative) Urine RBC 3-5 H (0-2) /HPF Urine WBC >50 H (0-5) /HPF Ur Squamous Epith Cells 6-10 (0-2) /HPF Urine Bacteria 1+ (None Seen) Hyaline Casts 0-2 (0-2) /LPF Urine Test NEGATIVE (NEGATIVE) Stool Occult Blood (NEGATIVE) Blood Type A Positive Antibody Screen NEGATIVE 10/02/22 10/02/22 Range/Units 14:02 14:02 WBC (4.8-10.8) X10*3/uL RBC (4.20-5.50) X10*6/uL Hgb (12.0-16.0) g/dl Hct (37.0-47.0) % MCV (80.0-98.0) fL MCH (27.0-33.0) pg MCHC (31.0-35.0) g/dl RDW (11.0-16.0) % Plt Count (160-400) X10*3/uL MPV (9.4-12.3) fL Immature Gran % (Auto) (0.0-0.4) % Neut % (Auto) (45-73) % Lymph % (Auto) (20-40) % [place] % (Auto) (2-11) % Eos % (Auto) (0-4) % Baso % (Auto) (0-2) % Lymph # (Auto) (1.2-4.9) X10*3/uL [place] # (Auto) (0.1-1.2) X10*3/uL Eos # (Auto) (0.0-0.4) X10*3/uL Baso # (Auto) (0.0-0.2) X10*3/uL Abs Immat Gran (auto) (0.00-0.03) X10*3/uL Absolute Neuts (auto) (2.0-8.3) x10*3/uL Absolute Nucleated RBC (0.0-0.012) X10*3/uL Nucleated RBC % (auto) (0.0-0.2) /100WBC PT (10.0-13.1) SEC INR (0.9-1.1) APTT (26.0-36.4) SEC Sodium (135-145) mmol/L Potassium (3.3-5.1) mmol/L Chloride (96-108) mmol/L Carbon Dioxide (22-29) mmol/L Anion Gap (12-20) BUN (9-16) mg/dL Creatinine (0.5-1.4) mg/dL Estim Creat Clear Calc Estimated GFR Random Glucose (60-115) mg/dL Calcium (8.4-10.2) mg/dL Total Bilirubin (0.0-1.0) mg/dL AST (5-31) U/L ALT (0-31) U/L Alkaline Phosphatase (39-117) U/L Troponin I High Sens < 2.7 (<3.5-17.0) ng/L Total Protein (6.5-8.0) g/dL Albumin (3.5-5.0) g/dL Lipase (8-78) U/L Urine Color Urine Appearance Urine pH (5.0-9.0) Ur Specific [place] (1.005-1.025) Urine Protein (Neg-Trace) mg/dL Urine Glucose (UA) (Negative) mg/dL Urine Ketones (Negative) mg/dL Urine Blood (Negative) Urine Nitrite (Negative) Ur Leukocyte Esterase (Negative) Urine RBC (0-2) /HPF Urine WBC (0-5) /HPF Ur Squamous Epith Cells (0-2) /HPF Urine Bacteria (None Seen) Hyaline Casts (0-2) /LPF Urine Test (NEGATIVE) Stool Occult Blood NEGATIVE (NEGATIVE) Blood Type Antibody Screen Independent Interpretation I performed an independent interpretation of an: EKG and CT Scan Interpretation: EKG: sinus bradycardia, flipped T waves in V1, V2, normal CO interval, no evidence of STEMI I independently reviewed the CT scan and agree with the radiologist's interpretation. Radiology Impression Discussion of test interpretation with radiology: I have reviewed the radiologist's reading. Radiologist Impression: CT/CT abdomen pelvis w IV con IMPRESSION: Postsurgical changes from gastric sleeve. Esophageal hernia. Fatty liver. ? Fleischner guidelines were followed. External Record Review External record reviewed: Inpatient record, Office record and Outpatient record Prescription Management I considered prescription management with: Pain Medication Discharge Plan Discharge Clinical Impression: Abdominal pain, Nausea & vomiting Patient Disposition: Still a Patient Instructions: Acute Nausea and Vomiting (ED), Abdominal Pain (ED) Additional Instructions: You have been evaluated in the emergency department today for nausea, vomiting, and abdominal pain. You are being prescribed ondansetron which you can use as per the prescription instructions for nausea. Please follow up with your primary care provider within two days. You should also follow up with your bariatric surgeon as well as the vendor specialist. Return to the emergency department if you experience worsening or uncontrolled pain, inability to tolerate fluids by mouth, difficulty breathing, fevers 100.4? F or greater, recurrent vomiting, or any other concerning symptoms. Prescriptions: New ondansetron 4 mg tablet,disintegrating 4 mg PO Q8H PRN (Reason: nausea and vomiting) Qty: 10 0RF No Action mecobalamin (vitamin B12) 1,000 mcg tablet,chewable 1,000 mcg PO DAILY Qty: 30 5RF simethicone 80 mg tablet,chewable 80 mg PO .four times a day PRN (Reason: abdominal distention) 30 Days Qty: 120 8RF albuterol sulfate 90 mcg/actuation HFA aerosol inhaler 1 puff PO Q4H PRN (Reason: bronchospasm) 90 Days Qty: 8.5 3RF Flovent HFA 44 mcg/actuation HFA aerosol inhaler 1 puff inhalation BID 30 Days Qty: 10.6 4RF Rx Instructions: administer with spacer pantoprazole 40 mg tablet,delayed release (DR/EC) 40 mg PO DAILY 90 Days Qty: 90 1RF cholecalciferol (vitamin D3) 25 mcg (1,000 unit) capsule 25 mcg PO DAILY 90 Days Qty: 90 1RF hydrochlorothiazide 25 mg tablet 25 mg PO QAM Qty: 90 3RF sumatriptan succinate 50 mg tablet 50 mg PO DAILY PRN (Reason: for migraine) Qty: 9 6RF gabapentin 600 mg tablet 600 mg PO TID 90 Days Qty: 270 0RF simvastatin 10 mg tablet 10 mg PO BEDTIME 90 Days Qty: 90 1RF lidocaine 5 % adhesive patch,medicated 1 patch topical DAILY 30 Days Qty: 30 1RF Rx Instructions: leave on most painful area for up to 12 hrs multivitamin with folic acid [Tab-A-Ananda] 400 mcg tablet 1 tab PO DAILY 90 Days Qty: 90 3RF methocarbamol 750 mg tablet 750 mg PO Q8H 30 Days Qty: 90 1RF meloxicam 15 mg tablet 15 mg PO DAILY 90 Days Qty: 90 0RF escitalopram oxalate 10 mg tablet 10 mg PO DAILY clonazepam 1 mg tablet 1 mg PO BEDTIME PRN dicyclomine 20 mg tablet 20 mg PO QID 30 Days Qty: 120 6RF (DME) Shower Chair [facility] [place] See Rx Instructions .Route Qty: 1 0RF Rx Instructions: As directed prazosin 5 mg capsule 5 mg PO BEDTIME buspirone 10 mg tablet 10 mg PO BID amitriptyline 25 mg tablet 25 mg PO DAILY Referrals: [facility] [Provider Group]
[2022-10-02 13:21] LABS: MANUAL DIFF FLAG NO
[2022-10-02 13:29] LABS: Basophils Percent Auto 0.6 % (0-2); Eosinophils Absolute Auto 0.1 X10*3/uL (0.0-0.4); Eosinophils Percent Auto 2.3 % (0-4); Hematocrit 42.7 % (37.0-47.0); Hemoglobin 14.2 g/dl (12.0-16.0); Imm Gran Abs Auto 0.02 X10*3/uL (0.00-0.03); Imm Gran Pct Auto 0.4 % (0.0-0.4); Lymphocytes Absolute Auto 1.4 X10*3/uL (1.2-4.9); Lymphocytes Percent Auto 29.9 % (20-40); Mean Corpuscular HGB Conc 33.3 g/dl (31.0-35.0); Mean Corpuscular Hemoglobin 30.8 pg (27.0-33.0); Mean Corpuscular Volume 92.6 fL (80.0-98.0); Mean Platelet Volume 9.5 fL (9.4-12.3); Monocytes Absolute Auto 0.5 X10*3/uL (0.1-1.2); Neutrophils Absolute Auto 2.6 x10*3/uL (2.0-8.3); Neutrophils Percent Auto 55.8 % (45-73); Platelet Count 215 X10*3/uL (160-400); Red Blood Count 4.61 X10*6/uL (4.20-5.50); Red Cell Distribution Width 13.6 % (11.0-16.0); White Blood Count 4.7 X10*3/uL (4.8-10.8)
[2022-10-02 13:32] LABS: Prothrombin Time 11.4 SEC (10.0-13.1)
[2022-10-02 13:35] LABS: Partial Thromboplastin Time 29.4 SEC (26.0-36.4)
[2022-10-02 13:41] LABS: Alanine Aminotransferase 25 U/L (0-31); Alkaline Phosphatase 62 U/L (39-117); Anion Gap 10 (12-20); Aspartate Amino Transferase 23 U/L (5-31); Blood Urea Nitrogen 17 mg/dL (9-16); Calcium 9.2 mg/dL (8.4-10.2); Carbon Dioxide 25 mmol/L (22-29); Chloride 113 mmol/L (96-108); Creatinine Clr Calc Pharmacy 75.5; Estimated Glomerular Filt Rate > 60; Glucose Random 98 mg/dL (60-115); Lipase 30 U/L (8-78); Sodium 144 mmol/L (135-145)
[2022-10-02 13:45] LABS: UPreg QC Valid YES
[2022-10-02 13:46] LABS: Appearance Urine Cloudy; Color Urine Yellow; Glucose Urine UA Negative (Negative); Leukocyte Esterase Urine Moderate (2+) (Negative); Nitrite Urine Negative (Negative); Specific Gravity - Urine >= 1.030 (1.005-1.025); UMIC TRIGGER UACC YES; Urine Blood Negative (Negative); Urine Ketones Trace mg/dL (Negative); Urine Pregnancy NEGATIVE (NEGATIVE); Urine Protein Negative (Neg-Trace)
[2022-10-02 13:47] VITALS: BP 130/67; PULSE 58; RESP 16; TEMP 36.8; O2SAT 95
--- NOTE | 2022-10-02 13:47 | ECG_ITS ---
Test Reason : abdominal pain Blood Pressure : / mmHG Vent. Rate : 052 BPM Atrial Rate : 052 BPM P-R Int : 154 ms QRS Dur : 074 ms QT Int : 426 ms P-R-T Axes : 041 023 025 degrees QTc Int : 396 ms Sinus bradycardia Low voltage QRS Borderline ECG When compared with ECG of 29-APR-2018 12:26, No significant change was found Referred By: Sujata Perea Electronically Signed By:REJI BOLAÑOS
[2022-10-02 13:50] LABS: Bacteria Urine 1+ (None Seen); Hyaline Casts Urine 0-2 /LPF (0-2); UACC Culture Trigger YES; WBC Urine >50 /HPF (0-5)
[2022-10-02 14:09] LABS: OBS Int Ctl Valid YES; OBS1 NEGATIVE (NEGATIVE)
[2022-10-02] MEDS: methylPREDNISolone Sod Succ 125 MG/2 ML VIAL IVPUSH (14:34)
[2022-10-02] MEDS: diphenhydrAMINE HCL 50 MG/ML VIAL 25 MG IVPUSH (14:34)
[2022-10-02] MEDS: ondansetron HCL 4 MG/2 ML VIAL IVPUSH (14:34)
[2022-10-02] MEDS: Famotidine/PF 20 MG/2 ML VIAL IVPUSH (14:34)
[2022-10-02] MEDS: Morphine Sulfate 4 MG/ML CARTRIDGE IVPUSH (14:35)
[2022-10-02 14:52] LABS: Troponin-I High Sensitivity < 2.7 ng/L (<3.5-17.0)
[2022-10-02 14:59] VITALS: BP 165/93; PULSE 61; RESP 14; TEMP 36.5; O2SAT 100
[2022-10-02] MEDS: iohexoL 350 MG/ML 100 ML INFUS..BTL IV (15:54)
[2022-10-02] MEDS: Barium Sulfate Oral (Berry) 450 ML ORAL.SUSP PO (15:55)
[2022-10-02 16:21] VITALS: BP 115/73; PULSE 62; RESP 20; TEMP 36.6; O2SAT 96
== END 2022-10-02 17:35 | disposition home or self-care (01) ==
PROVIDERS: Physician Assistant; Registered Nurse Emergency; Emergency Provider Emergency Medicine; PCP Internal Medicine
DX: R10.11 Right upper quadrant pain (principal); R00.1 Bradycardia, unspecified; K92.0 Hematemesis; Z79.899 Other long term (current) drug therapy; Z87.891 Personal history of nicotine dependence
CPT/HCPCS: 36415; 74177; 80053; 81001; 81025; 82272; 83690; 84484; 85025; 85610; 85730; 86850; 86900; 86901; 87086; 93005; 96374; 96375; 99285; J1200; J2270; J2405; J2930; Q9967

== ENCOUNTER 2022-10-18 14:00 | Outpatient (REF) | payer OTHER, SELFPAY ==
[2022-10-22 12:43] LABS: Vitamin B1 11 nmol/L (8-30)
[2022-10-23 00:33] LABS: Zinc 63 mcg/dL (60-130)
[2022-10-23 22:13] LABS: Vitamin A 34 mcg/dL (38-98)
== END 2022-10-18 14:01 | disposition home or self-care (01) ==
LOC: HO.LAB 14:00
PROVIDERS: PCP Internal Medicine; Visit Provider Physician Assistant Surgical
DX: E66.9 Obesity, unspecified (principal); K21.9 Gastro-esophageal reflux disease without esophagitis; Z98.84 Bariatric surgery status
CPT/HCPCS: 36415; 82306; 82607; 82746; 83970; 84425; 84590; 84630; 99212

== ENCOUNTER 2022-11-06 12:05 | Outpatient (AMB) | payer OTHER, SELFPAY ==
[2022-11-06 12:43] VITALS: BP 110/80; BMI 31.9
--- NOTE | 2022-11-06 12:43 | MHC.PC.OV ---
Vital Signs 11/06/22 12:43 Height 5 ft 3 in Weight 180 lb BMI 31.9 BP 110/80 Blood Pressure Location Lt brachial Position Sitting Intake Visit Reasons: depression,labs Intake Note: Patient here for a follow up depression, labs Supervisor [employer] Required: No Accompanied by: Son Allergies acetaminophen [From Tylenol] Allergy (Intermediate, Verified 11/06/22 12:55) Hives aloe Allergy (Intermediate, Verified 11/06/22 12:55) Rash duloxetine [From Cymbalta] Allergy (Intermediate, Verified 11/06/22 12:55) Rash, Itching lavender (Lavandula angustifolia) Allergy (Intermediate, Verified 11/06/22 12:55) Rash seafood Allergy (Intermediate, Verified 11/06/22 12:55) Rash Sulfa (Sulfonamide Antibiotics) Allergy (Intermediate, Verified 11/06/22 12:55) rash codeine [From Tylenol-Codeine] Allergy (Mild, Verified 11/06/22 12:55) ITCH Iodinated Contrast Media [IV Dye, Iodine Containing] Allergy (Mild, Verified 11/06/22 12:55) ITCH AND RASH latex [LATEX] Allergy (Mild, Verified 11/06/22 12:55) RASH Medication List - Last Reconciled 11/06/22 by Magali Loya MD albuterol sulfate 90 mcg/actuation 1 puff PO Q4H PRN 90 days amitriptyline 25 mg PO DAILY buspirone 10 mg PO BID cholecalciferol (vitamin D3) 25 mcg PO DAILY 90 days clonazepam 1 mg PO BEDTIME PRN dicyclomine 20 mg PO QID 30 days escitalopram oxalate 10 mg PO DAILY fluticasone propionate 44 mcg/actuation (Flovent HFA) 1 puff inhalation BID 30 days gabapentin 600 mg PO TID 90 days hydrochlorothiazide 25 mg PO QAM lidocaine 5% 1 patch topical DAILY 30 days mecobalamin (vitamin B12) 1,000 mcg PO DAILY meloxicam 15 mg PO DAILY 90 days methocarbamol 750 mg PO Q8H 30 days multivitamin with folic acid 400 mcg (Tab-A-Ananda) 1 tab PO DAILY 90 days ondansetron 4 mg PO Q8H PRN pantoprazole 40 mg PO DAILY 90 days prazosin 5 mg PO BEDTIME Shower Chair As directed simethicone 80 mg PO .four times a day PRN 30 days simvastatin 10 mg PO BEDTIME 90 days sucralfate 10 mL PO BID sumatriptan succinate 50 mg PO DAILY PRN vitamin A palmitate 10,000 units PO DAILY Tobacco use date assessed: 07/09/22 Dental Screening Dental Screen Date: 11/06/22 Did you have a dental visit in the last 12 months?: Yes Did you have a dental problem in the last 6 months where you did not have access to dental care?: No Was dental information given to patient?: Patient has dentist HPI HPI Comments History of Present Illness Details This is a 57-year-old female with hypertension, fibromyalgia, GERD and mild recurrent major depression that comes today accompanied by son for follow-up on her conditions. She walks with a cane for gait stability due to knee osteoarthritis. Blood pressure stable. GERD stable with PPIs. Depression stable with escitalopram. Depression is follow by Psychiatry. Still has diffuse joint pain due to fibromyalgia even though she is on gabapentin. FORMERLY [facility] Medical History B12 deficiency Essential hypertension Fibromyalgia Hand pain Hypovitaminosis D Insomnia Intestinal malabsorption following gastrectomy Low back pain Migraines Mild recurrent major depression Neuropathy Obesity with body mass index (BMI) of 30.0 to 39.9 Osteoarthritis of back Osteoarthritis of lumbar spine Physical exam Polyarthralgia Pre-diabetes Pure hypercholesterolemia Thiamine deficiency Surgical History History of removal of laparoscopic gastric banding device History of repair of hiatal hernia History of sleeve gastrectomy Hx of section Hx of cholecystectomy Hx of laparoscopic adjustable gastric banding S/P laparoscopic sleeve gastrectomy S/P ANA-BSO Family History Father Murder Mother Diabetes Hypertension Brother Diabetes Hypertension Son No problems noted. Other Mental health disorder Social History Housing: Apartment Housing Other:: complex housing Alcohol intake: never Patient Tobacco Use Status: Former Tobacco user Tobacco use type: Cigarette e-Cigarette/Vaping Use: Never Used Second Hand Smoke Exposure: No service: No Current occupational status: disabled Cognitive needs: Yes Hearing needs: No Vision needs: No Questionnaire Thrive Questionnaire Date Thrive assessed: 07/09/22 LUIS-7 AMB Questionnaire LUIS-7 Date LUIS - 7 assessed: 07/09/22 Source: Developed by Drs. Kelton Felix, Dede Zhang, Dov Mera and colleagues, with an educational sudarshan from [employer]. Review of Systems Const All systems reviewed & are unremarkable except as noted in HPI and below Eyes Reports no additional complaints, Denies change in vision and Denies other visual disturbances Card Denies chest pain at rest, Denies chest pain with activity, Denies edema, Denies irregular heart rhythm, Denies claudication, Denies dyspnea, Denies dyspnea on exertion, Denies orthopnea, Denies paroxysmal nocturnal dyspnea and Denies slow heart rate Resp Denies cough, Denies dyspnea and Denies dyspnea on exertion GI Denies abdominal pain, Denies change in bowel habits, Denies excessive flatus, Denies nausea and Denies vomiting Denies urinary incontinence, Denies urinary hesitancy and Denies urinary urgency Musc Denies abnormal gait, Reports back pain, Denies atrophy, Denies deformity, Reports arthralgias and Denies limited range of motion Skin/Breast Denies bleeding lesions, Denies changing lesions and Denies rash Neuro Denies abnormal gait and Denies lack of coordination Physical exam (Primary Care) Vital Signs: Last Vital Signs BP 110/80 11/06/22 12:43 BMI result Body Mass Index 31.9 Tobacco/Smoking Status: Tobacco use Status Tobacco use date assessed 07/09/22 11/06/22 12:48 Patient Tobacco Use Status Former Tobacco user 11/06/22 12:48 Tobacco use type Cigarette 11/06/22 12:48 e-Cigarette/Vaping Use Never Used 11/06/22 12:48 Thrive Assessment: Date of Thrive Assessment Date Thrive assessed 07/09/22 11/06/22 12:48 Const Limitations: ambulation with cane Eyes General: appearance normal, both eyes and all related structures Eyelids: Yes eyelids normal Conjunctivae: conjunctivae normal Neck Neck: Yes normal visual inspection and Yes supple Resp Effort & Inspection: normal respiratory effort Auscultation: clear to auscultation bilaterally Cardio Jugular venous distension: no JVD Rate: regular rate Rhythm: regular rhythm Heart sounds: S1 normal heart sound present and S2 normal heart sound present Extrem General: Yes full ROM Assessment and Plan Assessment & Plan (1) Mild recurrent major depression: Code(s): F33.0 - Major depressive disorder, recurrent, mild Plan: Continue escitalopram. Follow-up with psychiatry. (2) GERD (gastroesophageal reflux disease): Code(s): K21.9 - Gastro-esophageal reflux disease without esophagitis Plan: Continue PPIs. (3) Essential hypertension: Code(s): I10 - Essential (primary) hypertension Plan: Continue hydrochlorothiazide. Blood pressure goal is equal or less than 130/80. (4) Fibromyalgia: Code(s): M79.7 - Fibromyalgia Plan: Continue gabapentin Orders: Orders XR DEXA axial skeleton Today N95.9 - Unspecified menopausal and perimenopausal disorder Coding Level of Care Code Est Pt Level 4 (08601) Diagnoses Mild recurrent major depression F33.0 GERD (gastroesophageal reflux disease) K21.9 Essential hypertension I10 Fibromyalgia M79.7 Time Spent (min) 21
== END 2022-11-06 13:03 | disposition home or self-care (01) ==
PROVIDERS: PCP Internal Medicine; Visit Provider Internal Medicine
DX: F33.0 Major depressive disorder, recurrent, mild (principal); K21.9 Gastro-esophageal reflux disease without esophagitis; I10 Essential (primary) hypertension; M79.7 Fibromyalgia
CPT/HCPCS: 99214

== ENCOUNTER 2022-11-21 10:24 | Outpatient (REF) | payer OTHER, SELFPAY ==
--- NOTE | ~2022-11-21 | MM_ITS ---
EXAMINATION: BONE DENSITOMETRY CLINICAL INDICATION: Unspecified menopausal and perimenopausal disorder. COMPARISON: This is the patient's baseline examination. TECHNIQUE: Using a [employer] DXA System (software version: 13.1) manufactured by [employer], dual-energy x-ray absorptiometry was performed of the lumbar spine and left hip. The images are of good technical quality. Summary results are attached. FINDINGS: LEFT FEMUR, NECK: BMD 0.971 g/cm2, Z-score 0.3, T-score -0.5, normal. LEFT FEMUR, TOTAL: BMD 1.094 g/cm2, Z-score 1.1, T-score 0.7, normal. AP SPINE L1-L4: BMD 1.406 g/cm2, Z-score 2.4, T-score 1.9, normal. IDENTIFIED RISK FACTORS: Early menopause, secondary osteoporosis, low calcium intake, hysterectomy, bilateral oophorectomy. HISTORY OF FRACTURE: None listed. MEDICATIONS: Calcium supplements or multivitamin, vitamin D. MM/XR DEXA axial skeleton IMPRESSION: 1. DIAGNOSIS: Normal bone density based on the lowest T-score value of -0.5 in the femoral neck applying World Health Organization criteria. 2. 10-YEAR FRACTURE RISK PREDICTION, FRAX: According to the guidelines, FRAX calculation should only be performed on patients in the osteopenia bone density category. Therefore, FRAX was not performed on this patient. 3. Treatment Recommendations: NOF guidelines recommend consideration for treatment in postmenopausal women and men age 50 and older presenting with the following: -A hip or vertebral (clinical or morphometric) fracture. -T-score less than or equal to -2.5 at the femoral neck or spine after appropriate evaluation to exclude secondary causes. -Low bone mass at the hip or spine and a 10-year fracture probability by FRAX of greater than or equal to 3% for hip fracture or greater than or equal to 20% for major osteoporotic fracture based on the [place] adapted WHO algorithm. 4. Other Recommendations: All treatment decisions require clinical judgment and consideration of individual patient factors, including patient preferences, comorbidities, previous drug use, risk factors not captured in the FRAX model (e.g. frailty, falls, vitamin D deficiency, increased bone turnover, interval significant decline in bone density) and possible under or overestimation of fracture risk by FRAX. FUTURE SCAN RECOMMENDATION: People with diagnosed cases of osteoporosis or at high risk for fracture should have regular bone mineral density tests. For patients eligible for Medicare, routine testing is allowed once every 2 years. The testing frequency can be increased to one year for patients who have rapidly progressing disease, those who are receiving or discontinuing medical therapy to restore bone mass, or have additional risk factors.
== END 2022-11-21 10:25 | disposition home or self-care (01) ==
LOC: HO.MAMMO 10:24
PROVIDERS: PCP Internal Medicine; Visit Provider Internal Medicine
DX: Z13.820 Encounter for screening for osteoporosis (principal); Z78.0 Asymptomatic menopausal state
CPT/HCPCS: 77080

== ENCOUNTER → 2022-11-21 11:00 | Outpatient (BNV) | payer OTHER, SELFPAY | PROVIDERS: PCP Internal Medicine; Visit Provider Radiology Diagnostic Radiology | DX: Z78.0 Asymptomatic menopausal state (principal) | CPT/HCPCS: 77080 ==

== ENCOUNTER 2022-11-26 12:19 | Outpatient (REF) | payer OTHER, SELFPAY ==
[2022-11-26 15:12] LABS: Thyroid Stimulating Hormone 3.61 uIU/mL (0.32-4.0)
== END 2022-11-26 12:20 | disposition home or self-care (01) ==
LOC: HO.LAB 12:19
PROVIDERS: PCP Internal Medicine; Visit Provider Internal Medicine Rheumatology
DX: M17.0 Bilateral primary osteoarthritis of knee (principal); M79.7 Fibromyalgia; R53.83 Other fatigue
CPT/HCPCS: 36415; 84443; 99212

== ENCOUNTER 2022-11-26 12:19 | Outpatient (AMB) | payer OTHER, SELFPAY ==
--- NOTE | 2022-11-26 12:53 | A.OFFVIS_ITS ---
Intake Vital Signs 11/26/22 13:02 Height 5 ft 3 in Weight 177 lb 11.081 oz BMI 31.5 BP 114/92 H Blood Pressure Location Rt brachial Position Sitting Pulse 81 Pulse Source Pulse Oximeter Temp 97 F Temp Source Skin Pulse Oximetry (%) 95 Oxygen Delivery Method Room Air Intake Visit Reasons: FM Intake Note: Here for fibromyalgia. [employer] Supervisor Required: No Accompanied by: Child Allergies acetaminophen [From Tylenol] Allergy (Intermediate, Verified 11/26/22 12:54) Hives aloe Allergy (Intermediate, Verified 11/26/22 12:54) Rash duloxetine [From Cymbalta] Allergy (Intermediate, Verified 11/26/22 12:54) Rash, Itching lavender (Lavandula angustifolia) Allergy (Intermediate, Verified 11/26/22 12:54) Rash seafood Allergy (Intermediate, Verified 11/26/22 12:54) Rash Sulfa (Sulfonamide Antibiotics) Allergy (Intermediate, Verified 11/26/22 12:54) rash codeine [From Tylenol-Codeine] Allergy (Mild, Verified 11/26/22 12:54) ITCH Iodinated Contrast Media [IV Dye, Iodine Containing] Allergy (Mild, Verified 11/26/22 12:54) ITCH AND RASH latex [LATEX] Allergy (Mild, Verified 11/26/22 12:54) RASH Medication List - Last Reconciled 11/26/22 by Sherif Do MD albuterol sulfate 90 mcg/actuation 1 puff PO Q4H PRN 90 days amitriptyline 50 mg PO BEDTIME buspirone 15 mg PO BID cholecalciferol (vitamin D3) 25 mcg PO DAILY 90 days clonazepam 1 mg PO BEDTIME PRN dicyclomine 20 mg PO QID 30 days escitalopram oxalate 10 mg PO DAILY fluticasone propionate 44 mcg/actuation (Flovent HFA) 1 puff inhalation BID 30 days gabapentin 600 mg PO TID 90 days hydrochlorothiazide 25 mg PO QAM lidocaine 5% 1 patch topical DAILY 30 days mecobalamin (vitamin B12) 1,000 mcg PO DAILY meloxicam 15 mg PO DAILY 90 days methocarbamol 750 mg PO Q8H 30 days multivitamin with folic acid 400 mcg (Tab-A-Ananda) 1 tab PO DAILY 90 days ondansetron 4 mg PO Q8H PRN pantoprazole 40 mg PO DAILY 90 days prazosin 5 mg PO BEDTIME Shower Chair As directed simethicone 80 mg PO .four times a day PRN 30 days simvastatin 10 mg PO BEDTIME 90 days sucralfate 10 mL PO BID sumatriptan succinate 50 mg PO DAILY PRN vitamin A palmitate 10,000 units PO DAILY HPI HPI Comments History of Present Illness Details The patient returns with her for evaluation of her fibromyalgia. I had last seen her last October. She had evidence for fibromyalgia and osteoarthritis in the right knee and lumbar spine. Her complaints are much the same: There is widespread pain in muscles. She describes that the bones feel like they are being eaten away by insects. Mostly this is evident over the neck, forearms, lower back, hips, and knees. She feels worse when the weather is cool. She has a known positive MAGALI of a low titer but no confirmatory serologies for lupus. She takes amitriptyline at night, BuSpar, clonazepam p.r.n., escitalopram, lidocaine patches, methocarbamol t.i.d. if needed, and gabapentin 600 mg t.i.d.. [facility] Medical History B12 deficiency Essential hypertension Fibromyalgia Hand pain Hypovitaminosis D Insomnia Intestinal malabsorption following gastrectomy Low back pain Migraines Mild recurrent major depression Neuropathy Obesity with body mass index (BMI) of 30.0 to 39.9 Osteoarthritis of back Osteoarthritis of lumbar spine Physical exam Polyarthralgia Pre-diabetes Pure hypercholesterolemia Thiamine deficiency Surgical History History of removal of laparoscopic gastric banding device History of repair of hiatal hernia History of sleeve gastrectomy Hx of section Hx of cholecystectomy Hx of laparoscopic adjustable gastric banding S/P laparoscopic sleeve gastrectomy S/P ANA-BSO Family History Father Murder Mother Diabetes Hypertension Brother Diabetes Hypertension Son No problems noted. Other Mental health disorder Social History Housing: Apartment Housing Other:: complex housing Alcohol intake: never Patient Tobacco Use Status: Former Tobacco user Tobacco use type: Cigarette e-Cigarette/Vaping Use: Never Used Second Hand Smoke Exposure: No service: No Current occupational status: disabled Cognitive needs: Yes Hearing needs: No Vision needs: No Review of Systems Const Details: Low energy. She says her back pain and knee pain make it very difficult for her to walk most the time. Negative for appetite change, weight change, fever, chills, malaise Eyes Details: Occasional headache. Negative for vision change, dry eyes and dizziness Skin/Breast Details: Negative for itching, rash, hives, Raynaud's symptoms, sun sensitivity, and skin cancer Neuro Details: Intermittent tingling in the hands and feet. Negative for epilepsy, palsy, stroke, changes in speech and weakness Psych Details: Negative for anxiety, depression and stress Jayy/Lymph Details: Negative for excessive bruising or bleeding. Physical Exam Vital Signs: Last Vital Signs Temp 97 F 11/26/22 13:02 Pulse 81 11/26/22 13:02 BP 114/92 H 11/26/22 13:02 Pulse Ox 95 11/26/22 13:02 Oxygen Delivery Method Room Air 11/26/22 13:02 BMI result Body Mass Index 31.5 APPEARANCE: Patient in no acute distress EYES no redness, pupils equal and reactive to light, eyelids normal EXTREMITIES: No edema, no calf tenderness, normal peripheral pulses. NEURO: Oriented and alert x3. No focal weakness. Reflexes symmetric. Gait normal. SKIN: No inflammatory or neoplastic lesions. Normal color and turgor JOINT EXAM: ?? Cervical Spine:.? Full range of motion with mild pains; mild cervical muscle tenderness. Thoracic Spine:.? No scoliosis.? No tenderness on palpation. Lumbar Spine:.? Alignment normal.? Moderate pain with any range of motion.? Moderate paraspinal muscle tenderness.tenderness. Chest Wall:.? No tenderness, swelling, increased warmth or erythema. Hands:.? Normal range of motion with mild pains.? There is slight tenderness in the PIP is and MCPs but no swelling.? No increased warmth or erythema. Able to make a full fist and has a good early intervention specialist strength. Wrists:.? Normal pain-free range of motion with slight dorsal tenderness but no swelling, increased warmth or erythema. Elbows:. Normal pain-free range of motion without tenderness, swelling, increased warmth or erythema. Shoulders:.??Left:? Mild pain with extremes of normal range of motion.? There is some mild anterior tenderness without swelling or adenopathy.? Right:? Full range of motion with slight discomfort at the extremes.? Mild anterior tenderness without adenopathy, weakness, swelling, increased warmth or erythema. Hips:.? Full range of motion without pain. Hip bursa:.? No tenderness. Knees:.?? Right:? Mild to moderate pain with more than 90 degrees flexion or at full extension.? Mild to moderate medial tenderness with no effusion, redness or warmth.? Mild patellofemoral crepitus.? Left:? Mild patellofemoral crepitus and slight pain at the extremes of range of motion.? Mild medial tenderness without redness or effusion. Ankles: ? Normal pain-free range of motion with mild tenderness.? No swelling, increased warmth or erythema. Feet:.? Normal pain-free range of motion with mild tenderness across the insteps and MTP joints.? No swelling, No increased warmth or erythema. Tender points:.?mild tenderness to digital palpation at the occiput, trapezius, second rib, lateral epicondyle, knees, greater trochanter and gluteal area bilaterally. Results Reviewed Results Reviewed: [address] [address] XRay Report Signed Patient: Jason Hercules MR#: [id number] : 1965 Acct:[id number] Age/Sex: 56 / F ADM Date: 07/09/[address]: Magali Loya MD Ordering Physician: Magali Dietz MD Date of Service: 07/09/22 Procedure(s): XR knee RT 2V Accession Number(s): [id number] cc: Magali Dietz MD~ EXAMINATION: XR KNEE, RIGHT? CLINICAL INFORMATION: Pain.? COMPARISON: Radiographs dated 09/11/2009.? TECHNIQUE: AP and lateral views of the right knee. FINDINGS: Bony alignment and mineralization are normal. The lateral, medial and patellofemoral joint space compartments are well-maintained. There is mild peripheral osteophyte formation of the lateral and patellofemoral compartments. There is a moderate joint effusion. A 4 mm loose body is seen within the medial joint space compartment. No fracture or dislocation is seen. There is no significant varus or valgus configuration. There is no foreign body.? XR/XR knee RT 2V IMPRESSION: ? 1. There is mild osteoarthritic change of the lateral and patellofemoral joint space compartments. ? 2. There is a moderate right knee joint effusion. ? 3. A 4 mm loose body is noted. ? 4. There is no significant varus or valgus configuration. ? Dictated By: Jude Wood MD Assessment & Plan Assessment & Plan (1) Osteoarthritis of knees, bilateral: Code(s): M17.0 - Bilateral primary osteoarthritis of knee (2) Fibromyalgia: Code(s): M79.7 - Fibromyalgia Plan The patient continues with widespread pains but no signs on exam of an active inflammatory arthropathy. There is more pain in the right knee consistent with some osteoarthritis although there is also tenderness in the left knee where there probably is some OA as well. Radiographs of the right knee have documented some OA there. She has gone to physical therapy but thinks that hurts her more to do that. She had been offered a corticosteroid injection in the past by Orthopedics. That again is an option but she declines again today. I think much of her pain is due to fibromyalgia. She is on multiple medications for that disorder as well as anxiety and depression. I do not really have additional suggestions of a pharmacological nature. I did encourage her to remain physically active particularly trying to pursue light aerobic activities. She could return in the future if she wants to go through with a corticosteroid injection. Otherwise a return visit in 6-12 months would be reasonable. Orders: Orders Thyroid Stimulating Hormone Today M79.7 - Fibromyalgia, R53.83 - Other fatigue Coding Level of Care Code Est Pt Level 3 (60547) Diagnoses Osteoarthritis of knees, bilateral M17.0 Fibromyalgia M79.7
[2022-11-26 13:02] VITALS: BP 114/92; PULSE 81; TEMP 36.1; O2SAT 95; BMI 31.5
== END 2022-11-26 13:43 | disposition home or self-care (01) ==
PROVIDERS: PCP Internal Medicine; Visit Provider Internal Medicine Rheumatology
DX: M17.0 Bilateral primary osteoarthritis of knee (principal); M79.7 Fibromyalgia
CPT/HCPCS: 99213

== ENCOUNTER 2023-07-16 13:59 | Outpatient (AMB) | payer OTHER, SELFPAY ==
--- NOTE | 2023-07-16 14:08 | MHC.PC.OV ---
Vital Signs 07/16/23 14:09 Height 5 ft 3 in Weight 188 lb BMI 33.3 BP 122/80 Blood Pressure Location Lt brachial Position Sitting Intake Visit Reasons: PE Intake Note: Patient here for a physical exam Delivery Assistant Required: No Accompanied by: Son Allergies acetaminophen [From Tylenol] Allergy (Intermediate, Verified 07/16/23 14:30) Hives aloe Allergy (Intermediate, Verified 07/16/23 14:30) Rash duloxetine [From Cymbalta] Allergy (Intermediate, Verified 07/16/23 14:30) Rash, Itching lavender (Lavandula angustifolia) Allergy (Intermediate, Verified 07/16/23 14:30) Rash seafood Allergy (Intermediate, Verified 07/16/23 14:30) Rash Sulfa (Sulfonamide Antibiotics) Allergy (Intermediate, Verified 07/16/23 14:30) rash codeine [From Tylenol-Codeine] Allergy (Mild, Verified 07/16/23 14:30) ITCH Iodinated Contrast Media [IV Dye, Iodine Containing] Allergy (Mild, Verified 07/16/23 14:30) ITCH AND RASH latex [LATEX] Allergy (Mild, Verified 07/16/23 14:30) RASH Medication List - Last Reconciled 07/16/23 by Magali Loya MD albuterol sulfate 90 mcg/actuation 1 puff PO Q4H PRN 90 days amitriptyline 50 mg PO BEDTIME buspirone 15 mg PO BID cholecalciferol (vitamin D3) 25 mcg PO DAILY 90 days clonazepam 1 mg PO BEDTIME PRN dicyclomine 20 mg PO QID 30 days escitalopram oxalate 10 mg PO DAILY fluticasone propionate 44 mcg/actuation (Flovent HFA) 1 puff inhalation BID 30 days gabapentin 600 mg PO TID 90 days hydrochlorothiazide 25 mg PO QAM lactulose 10 grams (15 mL) PO BEDTIME PRN 30 days lidocaine 5% 1 patch topical DAILY 30 days mecobalamin (vitamin B12) 1,000 mcg PO DAILY meloxicam 15 mg PO DAILY 90 days methocarbamol 750 mg PO Q8H 30 days multivitamin with folic acid 400 mcg (Tab-A-Ananda) 1 tab PO DAILY 90 days ondansetron 4 mg PO Q8H PRN pantoprazole 40 mg PO DAILY prazosin 5 mg PO BEDTIME Shower Chair As directed simethicone 80 mg PO .four times a day PRN 30 days simvastatin 10 mg PO BEDTIME 90 days sucralfate 10 mL PO BID sumatriptan succinate 50 mg PO DAILY PRN vitamin A palmitate 10,000 units PO DAILY Tobacco use date assessed: 07/16/23 Dental Screening Dental Screen Date: 07/16/23 Did you have a dental visit in the last 12 months?: No Did you have a dental problem in the last 6 months where you did not have access to dental care?: No Was dental information given to patient?: Patient has dentist HPI HPI Comments History of Present Illness Details This is a 57-year-old female with mild recurrent major depression that comes accompanied by [employer] which is her son or her physical exam. Depression stable with medications and this is follow by Psychiatry. Last mammogram was June 2022. Last colonoscopy was 2015 and was normal. No need for Pap smear due to hysterectomy. No chest pain. Has some occasional wheezing. Has chronic pain secondary to fibromyalgia walks with a cane for gait stability. [facility] Medical History Osteoarthritis of lumbar spine Physical exam Polyarthralgia Mild recurrent major depression Hand pain Obesity with body mass index (BMI) of 30.0 to 39.9 Pre-diabetes Osteoarthritis of back Low back pain Intestinal malabsorption following gastrectomy Thiamine deficiency B12 deficiency Hypovitaminosis D Migraines Insomnia Fibromyalgia Pure hypercholesterolemia Essential hypertension Neuropathy Surgical History S/P ANA-BSO Hx of cholecystectomy S/P laparoscopic sleeve gastrectomy History of repair of hiatal hernia History of sleeve gastrectomy Hx of section History of removal of laparoscopic gastric banding device Hx of laparoscopic adjustable gastric banding Family History Father Murder Mother Diabetes Hypertension Brother Diabetes Hypertension Son No problems noted. Other Mental health disorder Social History Housing: Apartment Housing Other:: complex housing Alcohol intake: never Patient Tobacco Use Status: Former Tobacco user Tobacco use type: Cigarette e-Cigarette/Vaping Use: Never Used Second Hand Smoke Exposure: No service: No Current occupational status: disabled Cognitive needs: Yes Hearing needs: No Vision needs: No Questionnaire PHQ-9 Over the last 2 weeks, how often have you been bothered by any of the following problems? 1. Little interest or pleasure in doing things: not at all 2. Feeling down, depressed, or hopeless: not at all 3. Trouble falling or staying asleep, or sleeping too much: not at all 4. Feeling tired or having little energy: not at all 5. Poor appetite or overeating: not at all 6. Feeling bad about yourself - or that you are a failure or have let yourself or your family down: not at all 7. Trouble concentrating on things, such as reading the newspaper or watching television: not at all 8. Moving or speaking so slowly that other people could have noticed. Or the opposite - being so fidgety or restless that you have been moving around a lot more than usual: not at all 9. Thoughts that you would be better off or of hurting yourself in some way: not at all Total score: 0 Depression Screening Interpretation: Negative Depression Screening Done: Yes 60840 - PHQ-9 Billing: Yes Source: Developed by Drs. Kelton Felix, Dede Zhang, Dov Mera and colleagues, with an educational sudarshan from [employer]. Thrive Questionnaire Date Thrive assessed: 07/16/23 I am a: Patient What is your living situation today?: I have a steady place to live Within the past 12 months, did the food you bought not last and you didn't have the money to get more?: Never true Within the past 12 months, did you worry whether your food would run out before you got money to buy more?: Never true Do you have trouble paying for medicines?: No Do you have trouble getting transportation to medical appointments?: No Do you have trouble paying your heating and electricity bill?: No Do you have trouble taking care of your child, family member or friend?: No Do you have trouble with day-to-day activities such as bathing, preparing meals, shopping, managing finances, etc.?: Yes Are you currently unemployed and looking for a job?: No Are you interested in more education?: No Please select the resources that you would like help with: None Currently or been in a relationship where the following occur: no concerns reported THRIVE Score: 0 AUDIT C Alcohol Use Questionnaire (AUDIT-C) 1. How often do you have a drink containing alcohol?: Never Total Score: 0 Score Reviewed/Action Taken: No LUIS-7 AMB Questionnaire LUIS-7 Date LUIS - 7 assessed: 07/16/23 Feeling nervous, anxious, or on edge: 0 = Not at all Not being able to stop or control worryin = Not at all Worrying too much about different things: 0 = Not at all Trouble relaxin = Not at all Being so restless that it is hard to sit still: 0 = Not at all Becoming easily annoyed or irritable: 0 = Not at all Feeling afraid as if something awful might happen: 0 = Not at all Total LUIS-7 score (0-4 normal; 5-9 mild; 10-14 moderate; 15-21 severe): 0 Source: Developed by Drs. Kelton Felix, Dede Zhang, Dov Mera and colleagues, with an educational sudarshan from [employer]. LUIS-7 Assessment Billing LUIS-7 Assessment Tool: LUIS-7 Assessment 81123 Review of Systems Const All systems reviewed & are unremarkable except as noted in HPI and below Eyes Reports no additional complaints, Denies change in vision and Denies other visual disturbances Card Denies chest pain at rest, Denies chest pain with activity, Denies edema, Denies irregular heart rhythm, Denies claudication, Denies dyspnea, Denies dyspnea on exertion, Denies orthopnea, Denies paroxysmal nocturnal dyspnea and Denies slow heart rate Resp Denies cough, Denies dyspnea and Denies dyspnea on exertion GI Denies abdominal pain, Denies change in bowel habits, Denies excessive flatus, Denies nausea and Denies vomiting Denies urinary incontinence, Denies urinary hesitancy and Denies urinary urgency Musc Reports arthralgias Physical exam (Primary Care) Vital Signs: Last Vital Signs BP 122/80 07/16/23 14:09 BMI result Body Mass Index 33.3 Tobacco/Smoking Status: Tobacco use Status Tobacco use date assessed 07/16/23 07/16/23 14:16 Patient Tobacco Use Status Former Tobacco user 07/16/23 14:16 Tobacco use type Cigarette 07/16/23 14:16 e-Cigarette/Vaping Use Never Used 07/16/23 14:16 PHQ-9: PHQ-9 Score PHQ-9: Total score 0 07/16/23 14:16 Depression Screening Interpretation: Negative Thrive Assessment: Date of Thrive Assessment Date Thrive assessed 07/16/23 07/16/23 14:16 Currently or been in a relationship where the following occur: no concerns reported Const Orientation/consciousness: patient oriented x3 Limitations: ambulation with cane HENMT Head: Yes normal to inspection, Yes normocephalic and Yes atraumatic Ears: external ears normal Eyes General: appearance normal, both eyes and all related structures Eyelids: Yes eyelids normal Conjunctivae: conjunctivae normal Neck Neck: Yes normal visual inspection and Yes supple Resp Effort & Inspection: normal respiratory effort Auscultation: clear to auscultation bilaterally Cardio Jugular venous distension: no JVD Rate: regular rate Rhythm: regular rhythm Heart sounds: S1 normal heart sound present and S2 normal heart sound present GI Inspection: Yes normal to inspection Palpation (GI): Soft to palpation and nontender Auscultation: normal bowel sounds Skin General skin exam: no rashes or lesions noted Neuro General: patient oriented x3 and no focal motor deficits Extrem General: Yes full ROM Psych Appearance: grossly normal Assessment and Plan Assessment & Plan (1) Physical exam: Code(s): Z00.00 - Encounter for general adult medical examination without abnormal findings Plan: Repeat in a year. (2) Mild recurrent major depression: Code(s): F33.0 - Major depressive disorder, recurrent, mild Plan: Continue escitalopram and amitriptyline. Follow-up with psychiatry. Orders: Orders Lipid Panel Today E78.5 - Hyperlipidemia, unspecified Comprehensive [place]. Panel Fast Today Z00.00 - Encounter for general adult medical examination without abnormal findings Vitamin D 25-OH Total Today E55.9 - Vitamin D deficiency, unspecified Medications: New Ventolin HFA 90 mcg/actuation (albuterol sulfate) 2 puffs inhalation Q6H 30 days PRN 8 grams 1RF shortness of breath or wheezing NS fluticasone furoate 50 mcg/actuation (Arnuity Ellipta) 1 inh inhalation DAILY 30 days 30 ea 6RF Refilled gabapentin 600 mg PO TID 90 days 270 tabs 0RF M79.7 - Fibromyalgia cholecalciferol (vitamin D3) 25 mcg PO DAILY 90 days 90 caps 1RF hydrochlorothiazide 25 mg PO QAM 90 tabs 3RF pantoprazole 40 mg PO DAILY 90 tabs 2RF dicyclomine 20 mg PO QID 30 days 120 tabs 6RF lactulose 10 grams (15 mL) PO BEDTIME 30 days PRN 237 mL 0RF constipation simvastatin 10 mg PO BEDTIME 90 days 90 tabs 1RF sumatriptan succinate 50 mg PO DAILY PRN 9 tabs 6RF for migraine Discontinued fluticasone propionate 44 mcg/actuation (Flovent HFA) administer with spacer Discontinued Reason: Insurance Denied 1 puff inhalation BID 30 days 10.6 grams 4RF albuterol sulfate 90 mcg/actuation Discontinued Reason: Insurance Denied 1 puff PO Q4H 90 days PRN 8.5 grams 3RF bronchospasm Coding Level of Care Code Est Pt Prev Care 40-64y(19211) Diagnoses Physical exam Z00.00 Mild recurrent major depression F33.0 Additional Codes LUIS-7 Assessment Billing - LUIS-7 Assessment Tool: LUIS-7 Assessment [id number] ([id number]) Time Spent (min) 33
[2023-07-16 14:09] VITALS: BP 122/80; BMI 33.3
== END 2023-07-16 14:43 | disposition home or self-care (01) ==
PROVIDERS: Visit Provider Internal Medicine
DX: Z00.00 Encounter for general adult medical examination without abnormal findings (principal); F33.0 Major depressive disorder, recurrent, mild; K21.9 Gastro-esophageal reflux disease without esophagitis; I10 Essential (primary) hypertension
CPT/HCPCS: 99396

== ENCOUNTER 2023-07-16 14:50 | Outpatient (REF) | payer OTHER, SELFPAY ==
[2023-07-16 16:40] LABS: Alanine Aminotransferase 30 U/L (0-31); Alkaline Phosphatase 66 U/L (39-117); Anion Gap 11 (12-20); Aspartate Amino Transferase 26 U/L (5-31); Bilirubin Total 0.8 mg/dL (0.0-1.0); Blood Urea Nitrogen 16 mg/dL (9-16); Calcium 9.6 mg/dL (8.4-10.2); Carbon Dioxide 28 mmol/L (22-29); Chloride 109 mmol/L (96-108); Cholesterol 207 mg/dL (<200); Estimated Glomerular Filt Rate > 60; Glucose Fasting 86 mg/dL (60-99); HDL Cholesterol 47 mg/dL (>40); LDL Cholesterol Calculated 142 mg/dL (<100); Sodium 144 mmol/L (135-145); Total Protein 7.4 g/dL (6.5-8.0); Triglycerides 90 mg/dL (<150)
[2023-07-16 16:57] LABS: Vitamin D 25-OH Total 22.8 ng/mL (>30)
== END 2023-07-16 14:51 | disposition home or self-care (01) ==
LOC: HO.LAB 14:50
PROVIDERS: PCP Internal Medicine; Visit Provider Internal Medicine
DX: Z00.00 Encounter for general adult medical examination without abnormal findings (principal); E55.9 Vitamin D deficiency, unspecified; E78.5 Hyperlipidemia, unspecified
CPT/HCPCS: 36415; 80053; 80061; 82306

== ENCOUNTER 2024-01-22 11:06 | Outpatient (REF) | payer OTHER, SELFPAY ==
[2024-01-22 12:17] LABS: MANUAL DIFF FLAG NO
[2024-01-22 12:29] LABS: Basophils Percent Auto 0.7 % (0-2); Eosinophils Absolute Auto 0.2 X10*3/uL (0.0-0.4); Eosinophils Percent Auto 2.9 % (0-4); Hematocrit 41.7 % (37.0-47.0); Hemoglobin 13.7 g/dl (12.0-16.0); Imm Gran Abs Auto 0.02 X10*3/uL (0.00-0.03); Imm Gran Pct Auto 0.3 % (0.0-0.4); Lymphocytes Absolute Auto 1.7 X10*3/uL (1.2-4.9); Lymphocytes Percent Auto 28.3 % (20-40); Mean Corpuscular HGB Conc 32.9 g/dl (31.0-35.0); Mean Corpuscular Hemoglobin 30.6 pg (27.0-33.0); Mean Corpuscular Volume 93.1 fL (80.0-98.0); Mean Platelet Volume 9.5 fL (9.4-12.3); Monocytes Absolute Auto 0.5 X10*3/uL (0.1-1.2); Monocytes Percent Auto 8.7 % (2-11); Neutrophils Absolute Auto 3.5 x10*3/uL (2.0-8.3); Neutrophils Percent Auto 59.1 % (45-73); Platelet Count 195 X10*3/uL (160-400); Red Blood Count 4.48 X10*6/uL (4.20-5.50); Red Cell Distribution Width 13.2 % (11.0-16.0); White Blood Count 5.9 X10*3/uL (4.8-10.8)
[2024-01-22 13:08] LABS: Alanine Aminotransferase 39 U/L (0-31); Albumin Level 3.8 g/dL (3.5-5.0); Alkaline Phosphatase 62 U/L (39-117); Anion Gap 12 (12-20); Aspartate Amino Transferase 35 U/L (5-31); Bilirubin Total 0.5 mg/dL (0.0-1.0); Blood Urea Nitrogen 15 mg/dL (9-16); Calcium 8.9 mg/dL (8.4-10.2); Carbon Dioxide 24 mmol/L (22-29); Chloride 111 mmol/L (96-108); Cholesterol 160 mg/dL (<200); Estimated Glomerular Filt Rate > 60; Glucose Fasting 111 mg/dL (60-99); HDL Cholesterol 40 mg/dL (>40); Iron 91 mcg/dL (30-160); LDL Cholesterol Calculated 103 mg/dL (<100); Percent Iron Saturation 37 % (15-50); Potassium 4.3 mmol/L (3.3-5.1); Sodium 143 mmol/L (135-145); Total Iron Binding Capacity 245 mcg/dL (228-428); Total Protein 6.9 g/dL (6.5-8.0); Triglycerides 87 mg/dL (<150); Unsaturated Iron Binding 154 ug/dL
[2024-01-22 13:29] LABS: Thyroid Stimulating Hormone 3.27 uIU/mL (0.32-4.0); Vitamin D 25-OH Total 31.9 ng/mL (>30)
[2024-01-22 13:36] LABS: Folate 11.7 ng/mL (> or = 4.0); Vitamin B12 471 pg/mL (200-900)
== END 2024-01-22 11:07 | disposition home or self-care (01) ==
LOC: HO.LAB 11:06
PROVIDERS: PCP Internal Medicine; Visit Provider Internal Medicine
DX: R53.83 Other fatigue (principal); E55.9 Vitamin D deficiency, unspecified; D64.9 Anemia, unspecified; E78.5 Hyperlipidemia, unspecified; E53.8 Deficiency of other specified B group vitamins; F41.9 Anxiety disorder, unspecified; F33.0 Major depressive disorder, recurrent, mild; K21.9 Gastro-esophageal reflux disease without esophagitis; K59.04 Chronic idiopathic constipation
CPT/HCPCS: 36415; 80053; 80061; 82306; 82607; 82746; 83540; 84443; 85025; 99212

== ENCOUNTER 2024-01-22 11:06 | Outpatient (AMB) | payer OTHER, SELFPAY ==
[2024-01-22 11:11] VITALS: BP 122/76; BMI 33.3
--- NOTE | 2024-01-22 11:11 | MHC.PC.OV ---
Vital Signs 01/22/24 11:11 Height 5 ft 3 in Weight 188 lb BMI 33.3 BP 122/76 Blood Pressure Location Lt brachial Position Sitting Intake Visit Reasons: depression,lipids Intake Note: Patient here for a follow up Depression, lipids, side effects to medication Savings Counselor Required: No Accompanied by: Son Allergies acetaminophen [From Tylenol] Allergy (Intermediate, Verified 01/22/24 11:27) Hives aloe Allergy (Intermediate, Verified 01/22/24 11:27) Rash duloxetine [From Cymbalta] Allergy (Intermediate, Verified 01/22/24 11:27) Rash, Itching lavender (Lavandula angustifolia) Allergy (Intermediate, Verified 01/22/24 11:27) Rash seafood Allergy (Intermediate, Verified 01/22/24 11:27) Rash Sulfa (Sulfonamide Antibiotics) Allergy (Intermediate, Verified 01/22/24 11:27) rash codeine [From Tylenol-Codeine] Allergy (Mild, Verified 01/22/24 11:27) ITCH Iodinated Contrast Media [IV Dye, Iodine Containing] Allergy (Mild, Verified 01/22/24 11:27) ITCH AND RASH latex [LATEX] Allergy (Mild, Verified 01/22/24 11:27) RASH Medication List - Last Reconciled 01/22/24 by Magali Loya MD amitriptyline 50 mg PO BEDTIME buspirone 15 mg PO BID cholecalciferol (vitamin D3) 25 mcg PO DAILY 90 days clonazepam 1 mg PO BEDTIME PRN dicyclomine 20 mg PO QID 30 days escitalopram oxalate 10 mg PO DAILY fluticasone furoate 50 mcg/actuation (Arnuity Ellipta) 1 inh inhalation DAILY 30 days gabapentin 600 mg PO TID 90 days hydrochlorothiazide 25 mg PO QAM lactulose 10 grams (15 mL) PO BEDTIME PRN 30 days lidocaine 5% 1 patch topical DAILY 30 days mecobalamin (vitamin B12) 1,000 mcg PO DAILY meloxicam 15 mg PO DAILY 90 days methocarbamol 750 mg PO Q8H 30 days multivitamin with folic acid 400 mcg (Tab-A-Ananda) 1 tab PO DAILY 90 days ondansetron 4 mg PO Q8H PRN pantoprazole 40 mg PO DAILY prazosin 5 mg PO BEDTIME Shower Chair As directed simethicone 80 mg PO .four times a day PRN 30 days simvastatin 20 mg PO BEDTIME 90 days sucralfate 1 g PO BID 30 days sumatriptan succinate 50 mg PO DAILY PRN Ventolin HFA 90 mcg/actuation (albuterol sulfate) 2 puffs inhalation Q6H PRN 30 days NS vitamin A palmitate 10,000 units PO DAILY Tobacco use date assessed: 07/16/23 Dental Screening Dental Screen Date: 07/16/23 HPI HPI Comments History of Present Illness Details This is a 58-year-old female with chronic idiopathic constipation, GERD, mild recurrent major depression and anxiety that comes today accompanied by son for follow-up on her conditions. She walks with a cane for gait stability. Constipation stable with lactulose as needed. GERD stable with PPIs and follow by Gastroenterology. Depression well controlled with escitalopram as well as anxiety with benzodiazepines and she does follow with counseling and psychiatry. No chest pain or shortness on breath. She is obese with a BMI of 33.3 and has tried diet and exercise. I will start her on wegovy once a week. She does have elevated cholesterol but said that the statins gave her abdominal pain. [facility] Medical History (Updated 01/22/24 @ 17:27 by Magali Loya MD) Osteoarthritis of lumbar spine Physical exam Polyarthralgia Mild recurrent major depression Hand pain Obesity with body mass index (BMI) of 30.0 to 39.9 Pre-diabetes Osteoarthritis of back Low back pain Intestinal malabsorption following gastrectomy Thiamine deficiency B12 deficiency Hypovitaminosis D Migraines Insomnia Fibromyalgia Pure hypercholesterolemia Essential hypertension Neuropathy Surgical History S/P ANA-BSO Hx of cholecystectomy S/P laparoscopic sleeve gastrectomy History of repair of hiatal hernia History of sleeve gastrectomy Hx of section History of removal of laparoscopic gastric banding device Hx of laparoscopic adjustable gastric banding Family History Father Murder Mother Diabetes Hypertension Brother Diabetes Hypertension Son No problems noted. Other Mental health disorder Social History Housing: Apartment Housing Other:: complex housing Alcohol intake: never Patient Tobacco Use Status: Former Tobacco user Tobacco use type: Cigarette e-Cigarette/Vaping Use: Never Used Second Hand Smoke Exposure: No service: No Current occupational status: disabled Cognitive needs: Yes Hearing needs: No Vision needs: No Questionnaire Thrive Questionnaire Date Thrive assessed: 07/16/23 Are you currently unemployed and looking for a job?: No AUDIT C Alcohol Use Questionnaire (AUDIT-C) 1. How often do you have a drink containing alcohol?: Never 3. How often do you have six or more drinks on one occasion?: Never Total Score: 0 Score Reviewed/Action Taken: No LUIS-7 AMB Questionnaire LUIS-7 Date LUIS - 7 assessed: 07/16/23 Source: Developed by Drs. Kelton Felix, Dede Zhang, Dov Mera and colleagues, with an educational sudarshan from [employer]. Review of Systems Const All systems reviewed & are unremarkable except as noted in HPI and below Card Denies chest pain at rest, Denies chest pain with activity, Denies edema, Denies irregular heart rhythm, Denies claudication, Denies dyspnea, Denies dyspnea on exertion, Denies orthopnea, Denies paroxysmal nocturnal dyspnea and Denies slow heart rate Resp Denies cough, Denies dyspnea and Denies dyspnea on exertion GI Denies abdominal pain, Denies change in bowel habits, Denies excessive flatus, Denies nausea and Denies vomiting Physical exam (Primary Care) Vital Signs: Last Vital Signs BP 122/76 01/22/24 11:11 BMI result Body Mass Index 33.3 BMI Assessment/Plan discussion: High BMI High, discussed plan: lifestyle, weight reduction, dietary and physical activity Tobacco/Smoking Status: Tobacco use Status Tobacco use date assessed 07/16/23 01/22/24 11:17 Patient Tobacco Use Status Former Tobacco user 01/22/24 11:17 Tobacco use type Cigarette 01/22/24 11:17 e-Cigarette/Vaping Use Never Used 01/22/24 11:17 Thrive Assessment: Date of Thrive Assessment Date Thrive assessed 07/16/23 01/22/24 11:17 Resp Effort & Inspection: normal respiratory effort Auscultation: clear to auscultation bilaterally Cardio Jugular venous distension: no JVD Rate: regular rate Rhythm: regular rhythm Heart sounds: S1 normal heart sound present and S2 normal heart sound present Extrem General: Yes full ROM Coding Level of Care Code Complex EM visit Add On G2211 Diagnoses Mild recurrent major depression F33.0 GERD (gastroesophageal reflux disease) K21.9 Chronic idiopathic constipation K59.04 Anxiety F41.9 Time Spent (min) 22 Assessment & Plan Assessment & Plan (1) Mild recurrent major depression: Code(s): F33.0 - Major depressive disorder, recurrent, mild Category: Medical Plan: Continue escitalopram. (2) GERD (gastroesophageal reflux disease): Code(s): K21.9 - Gastro-esophageal reflux disease without esophagitis Category: Medical Plan: Continue PPIs. (3) Chronic idiopathic constipation: Code(s): K59.04 - Chronic idiopathic constipation Category: Medical Plan: Continue lactulose as needed. (4) Anxiety: Code(s): F41.9 - Anxiety disorder, unspecified Category: Medical Plan: Continue benzodiazepines as needed. Follow-up with psychiatry. Orders: Orders Vitamin D 25-OH Total Today E55.9 - Vitamin D deficiency, unspecified Complete Blood Count Auto Diff Today D64.9 - Anemia, unspecified Comprehensive [place]. Panel Fast Today R53.83 - Other fatigue Thyroid Stimulating Hormone Today R53.83 - Other fatigue Lipid Panel Today E78.5 - Hyperlipidemia, unspecified Vitamin B12 and Folate Today E53.8 - Deficiency of other specified B group vitamins IRON PROFILE Today D64.9 - Anemia, unspecified Medications: New semaglutide (weight loss) (Ashu) administer weeks 1 through 4 of therapy 0.25 mg (0.5 mL) subcut QWEEK 2 mL 0RF 4 weeks Discontinued hydrochlorothiazide Discontinued Reason: Patient Completed Course 25 mg PO QAM 90 tabs 3RF simvastatin Discontinued Reason: Patient Completed Course 20 mg PO BEDTIME 90 days 90 tabs 0RF
== END 2024-01-22 11:38 | disposition home or self-care (01) ==
PROVIDERS: PCP Internal Medicine; Visit Provider Internal Medicine
DX: F33.0 Major depressive disorder, recurrent, mild (principal); K21.9 Gastro-esophageal reflux disease without esophagitis; K59.04 Chronic idiopathic constipation; F41.9 Anxiety disorder, unspecified

== ENCOUNTER 2024-06-22 10:43 | Outpatient (AMB) | payer OTHER, SELFPAY ==
--- NOTE | 2024-06-22 10:36 | A.OFFVIS_ITS ---
VS Expanded 06/22/24 10:47 Height 5 ft 3 in Weight 188 lb BMI 33.3 Intake Visit Reasons: TV PO LSG 09/17/18 Allergies acetaminophen [From Tylenol] Allergy (Intermediate, Verified 01/22/24 11:27) Hives aloe Allergy (Intermediate, Verified 01/22/24 11:27) Rash duloxetine [From Cymbalta] Allergy (Intermediate, Verified 01/22/24 11:27) Rash, Itching lavender (Lavandula angustifolia) Allergy (Intermediate, Verified 01/22/24 11:27) Rash seafood Allergy (Intermediate, Verified 01/22/24 11:27) Rash Sulfa (Sulfonamide Antibiotics) Allergy (Intermediate, Verified 01/22/24 11:27) rash codeine [From Tylenol-Codeine] Allergy (Mild, Verified 01/22/24 11:27) ITCH Iodinated Contrast Media [IV Dye, Iodine Containing] Allergy (Mild, Verified 01/22/24 11:27) ITCH AND RASH latex [LATEX] Allergy (Mild, Verified 01/22/24 11:27) RASH Medication List - Last Reconciled 06/22/24 by BINTA Vela amitriptyline 50 mg PO BEDTIME buspirone 15 mg PO BID cholecalciferol (vitamin D3) 25 mcg PO DAILY 90 days clonazepam 1 mg PO BEDTIME PRN dicyclomine 20 mg PO QID 30 days escitalopram oxalate 10 mg PO DAILY fluticasone furoate 50 mcg/actuation (Arnuity Ellipta) 1 inh inhalation DAILY 30 days gabapentin 600 mg PO TID 90 days lactulose 10 grams (15 mL) PO BEDTIME PRN 30 days lidocaine 5% 1 patch topical DAILY 30 days mecobalamin (vitamin B12) 1,000 mcg PO DAILY meloxicam 15 mg PO DAILY 90 days methocarbamol 750 mg PO Q8H 30 days multivitamin with folic acid 400 mcg (Tab-A-Ananda) 1 tab PO DAILY 90 days ondansetron 4 mg PO Q8H PRN pantoprazole 40 mg PO DAILY prazosin 5 mg PO BEDTIME semaglutide (weight loss) (Wegovy) 1.7 mg (0.75 mL) subcut QWEEK Shower Chair As directed simethicone 80 mg PO .four times a day PRN 30 days sucralfate 1 g PO BID 30 days sumatriptan succinate 50 mg PO DAILY PRN Ventolin HFA 90 mcg/actuation (albuterol sulfate) 2 puffs inhalation Q6H PRN 30 days NS vitamin A palmitate 10,000 units PO DAILY HPI Comments Details: This?is a?58?yo female who is s/p LSG 09/17/2018. Weight at last visit on 10/18/2022 was 180 pounds with a BMI of 31.9, weight today is 188 pounds, representing a 8 pound weight gain with a BMI today of .? No complaints of nausea, emesis, abdominal pain or reflux, or constipation. Was started on Wegovy by PCP in January, but was stopped- pt is unclear as to why. Reports she gained several pounds after stopping. Present meal plan includes: 9-11am Celebrate shake, 2 scoops in 8oz unsweetened almond milk 1-3pm same shake 5-7pm same shake -given at last visit in 2022 [facility] Medical History Osteoarthritis of lumbar spine Physical exam Polyarthralgia Mild recurrent major depression Hand pain Obesity with body mass index (BMI) of 30.0 to 39.9 Pre-diabetes Osteoarthritis of back Low back pain Intestinal malabsorption following gastrectomy Thiamine deficiency B12 deficiency Hypovitaminosis D Migraines Insomnia Fibromyalgia Pure hypercholesterolemia Essential hypertension Neuropathy Surgical History S/P ANA-BSO Hx of cholecystectomy S/P laparoscopic sleeve gastrectomy History of repair of hiatal hernia History of sleeve gastrectomy Hx of section History of removal of laparoscopic gastric banding device Hx of laparoscopic adjustable gastric banding Family History Father Murder Mother Diabetes Hypertension Brother Diabetes Hypertension Son No problems noted. Other Mental health disorder Social History Housing: Apartment Housing Other:: complex housing Alcohol intake: never Patient Tobacco Use Status: Former Tobacco user Tobacco use type: Cigarette e-Cigarette/Vaping Use: Never Used Second Hand Smoke Exposure: No service: No Current occupational status: disabled Cognitive needs: Yes Hearing needs: No Vision needs: No Telehealth Telehealth Telehealth Platform: Telephone Location of provider rendering services: other Location of patient: address on file Patient Identification confirmed using: Name, : Yes Telehealth method: voice only Patient verbally consented to treatment: Yes Patient verbally consented to billing insurance company: Yes Patient informed of any privacy concerns related to visit: Yes Minutes spent on Phone/Video with Pt.: 16 Assessment & Plan Assessment & Plan (1) Obese: Code(s): E66.9 - Obesity, unspecified Category: Medical (2) S/P laparoscopic sleeve gastrectomy: Code(s): Z98.84 - Bariatric surgery status Category: Surgical Plan Strongly encouraged pt to follow a plan on Right BMI fabienne, sent fabienne download info via text. Pt is interested in restarting GLP1. Reviewed contraindications, discussed dosing. Discussed need for adequate protein intake while on GLP1s as well as frequent communication with our office. Pt will check in with me weekly and is aware that subsequent Rx will be dependent on frequent communication. RTC 3 mo. Medications: New semaglutide (weight loss) (Wegovy) administer weeks 13 through 16 of therapy 1.7 mg (0.75 mL) subcut QWEEK 3 mL 0RF Discontinued semaglutide (weight loss) (Wegovy) administer weeks 13 through 16 of therapy Discontinued Reason: Doctor's Order 1.7 mg (0.75 mL) subcut QWEEK 4 weeks 3 mL 0RF
[2024-06-22 10:47] VITALS: BMI 33.3
== END 2024-06-22 10:55 | disposition home or self-care (01) ==
LOC: HO.HBS 10:43
PROVIDERS: PCP Internal Medicine; Visit Provider Physician Assistant Surgical
DX: E66.811 Obesity, class 1 (principal); Z68.33 Body mass index [BMI] 33.0-33.9, adult; Z90.3 Acquired absence of stomach [part of]; Z98.84 Bariatric surgery status
CPT/HCPCS: 99214; G2211

== ENCOUNTER → 2024-06-22 10:43 | Outpatient (BNVA) | payer OTHER, SELFPAY | PROVIDERS: PCP Internal Medicine; Visit Provider Physician Assistant Surgical ==

== ENCOUNTER 2024-07-28 12:27 | Outpatient (REF) | payer OTHER, SELFPAY ==
--- NOTE | ~2024-07-28 | XR_ITS ---
EXAMINATION: X-RAY KNEE, BILATERALLY. CLINICAL INFORMATION: Pain in the left knee. TECHNIQUE: 4 views of the 12th knee. COMPARISON: September 25, 2021. July 09, 2022. FINDINGS: RIGHT KNEE: Original osteophyte formation at the lateral femoral condyles and lateral tibial plateau. Sclerosis and the articular surface of the tibial plateaus. Asymmetric joint space narrowing involving the medial and lateral compartments. Suprapatellar bursa joint effusion, small to moderate volume. Focal calcifications in the in the joint space. Marginal osteophyte formation and posterior superior patella. No acute cortical disruption or malalignment. No lytic or blastic lesions LEFT KNEE: Joint space narrowing involving mostly the medial compartment. Sclerosis of the articular surface of the medial tibial plateau. Marginal osteophyte formation and medial femoral condyles and medial tibial plateau. Marginal osteophyte formation in the posterior superior patella. Exostosis at the quadriceps tendon insertion. Small trace suprapatellar bursa joint effusion. No acute cortical disruption or malalignment. No lytic or blastic lesions. XR/XR Knee Mendel 1or 2V IMPRESSION: Bicompartmental osteoarthrosis involving mostly the right knee. Suprapatellar bursa joint effusions, small to moderate volume, right greater than the left side. Electronically signed by: Bernardo Bradshaw MD 07/29/2024 02:26 PM EDT
--- NOTE | ~2024-07-28 | XR_ITS ---
EXAMINATION: XR LUMBOSACRAL SPINE CLINICAL INFORMATION: M47.816 - Spondylosis without myelopathy or radiculopathy, lumbar region COMPARISON: September 25, 2021. TECHNIQUE: Three views of the lumbosacral spine. FINDINGS: Multilevel marginal osteophyte formation and endplate sclerosis and decreased intervertebral disc height throughout the axial skeleton involving the lower thoracic and to a lesser extent upper lumbar spine. Grade 1 retrolisthesis L2-3 and L1-2 levels. No acute cortical disruption. No lytic or blastic lesions. Vascular clips right upper quadrant abdomen and right lower pelvis likely prior laparoscopic cholecystectomy. XR/XR lumbar spine 2-3V IMPRESSION: Multilevel thoracolumbar spondylosis resulting in grade 1 retrolisthesis L2-3 and L1-2 levels. Electronically signed by: Bernardo Bradshaw MD 07/29/2024 01:55 PM EDT
[2024-07-28 13:44] LABS: MANUAL DIFF FLAG NO
[2024-07-28 14:18] LABS: Basophils Percent Auto 0.6 % (0-2); Eosinophils Absolute Auto 0.2 X10*3/uL (0.0-0.4); Eosinophils Percent Auto 2.5 % (0-4); Hematocrit 42.6 % (37.0-47.0); Hemoglobin 14.1 g/dl (12.0-16.0); Imm Gran Abs Auto 0.02 X10*3/uL (0.00-0.03); Imm Gran Pct Auto 0.3 % (0.0-0.4); Lymphocytes Absolute Auto 1.8 X10*3/uL (1.2-4.9); Lymphocytes Percent Auto 27.8 % (20-40); Mean Corpuscular HGB Conc 33.1 g/dl (31.0-35.0); Mean Corpuscular Hemoglobin 31.1 pg (27.0-33.0); Mean Corpuscular Volume 93.8 fL (80.0-98.0); Mean Platelet Volume 9.6 fL (9.4-12.3); Monocytes Absolute Auto 0.7 X10*3/uL (0.1-1.2); Monocytes Percent Auto 10.7 % (2-11); Neutrophils Absolute Auto 3.7 x10*3/uL (2.0-8.3); Neutrophils Percent Auto 58.1 % (45-73); Platelet Count 230 X10*3/uL (160-400); Red Blood Count 4.54 X10*6/uL (4.20-5.50); Red Cell Distribution Width 13.1 % (11.0-16.0); White Blood Count 6.3 X10*3/uL (4.8-10.8)
[2024-07-28 15:03] LABS: Alanine Aminotransferase 22 U/L (0-31); Anion Gap 10 (12-20); Aspartate Amino Transferase 27 U/L (5-31); Bilirubin Total 0.8 mg/dL (0.0-1.0); Blood Urea Nitrogen 21 mg/dL (9-16); Calcium 9.5 mg/dL (8.4-10.2); Carbon Dioxide 26 mmol/L (22-29); Chloride 109 mmol/L (96-108); Cholesterol 200 mg/dL (<200); Estimated Glomerular Filt Rate > 60; Glucose Fasting 85 mg/dL (60-99); HDL Cholesterol 46 mg/dL (>40); Iron 84 mcg/dL (30-160); LDL Cholesterol Calculated 136 mg/dL (<100); Percent Iron Saturation 32 % (15-50); Potassium 3.9 mmol/L (3.3-5.1); Sodium 141 mmol/L (135-145); Total Iron Binding Capacity 263 mcg/dL (228-428); Triglycerides 90 mg/dL (<150); Unsaturated Iron Binding 179 ug/dL
[2024-07-28 15:22] LABS: Vitamin B12 327 pg/mL (200-900)
[2024-07-28 17:22] LABS: Alkaline Phosphatase 74 U/L (39-117)
== END 2024-07-28 12:28 | disposition home or self-care (01) ==
LOC: HO.LAB 12:27
PROVIDERS: PCP Internal Medicine; Visit Provider Internal Medicine
DX: Z00.00 Encounter for general adult medical examination without abnormal findings (principal); Z23 Encounter for immunization; E78.5 Hyperlipidemia, unspecified; E53.8 Deficiency of other specified B group vitamins; E55.9 Vitamin D deficiency, unspecified; D64.9 Anemia, unspecified; K21.9 Gastro-esophageal reflux disease without esophagitis; M47.816 Spondylosis without myelopathy or radiculopathy, lumbar region
CPT/HCPCS: 36415; 72100; 73560; 80053; 80061; 82306; 82607; 82746; 83540; 85025; 90471; 90715; 96127; 99212; 99396

== ENCOUNTER 2024-07-28 12:27 | Outpatient (AMB) | payer OTHER, SELFPAY ==
[2024-07-28 12:46] VITALS: BP 124/80; BMI 31.4
--- NOTE | 2024-07-28 12:46 | A.OFFPC_ITS ---
Vital Signs 07/28/24 12:46 Height 5 ft 3 in Weight 177 lb BMI 31.4 BP 124/80 Blood Pressure Location Lt brachial Position Sitting Intake Visit Reasons: Annual Exam Intake Note: Patient here for a physical exam Varnish Inspector Required: No Accompanied by: Self / Same As Patient Allergies acetaminophen [From Tylenol] Allergy (Intermediate, Verified 07/28/24 12:56) Hives aloe Allergy (Intermediate, Verified 07/28/24 12:56) Rash duloxetine [From Cymbalta] Allergy (Intermediate, Verified 07/28/24 12:56) Rash, Itching lavender (Lavandula angustifolia) Allergy (Intermediate, Verified 07/28/24 12:56) Rash seafood Allergy (Intermediate, Verified 07/28/24 12:56) Rash Sulfa (Sulfonamide Antibiotics) Allergy (Intermediate, Verified 07/28/24 12:56) rash codeine [From Tylenol-Codeine] Allergy (Mild, Verified 07/28/24 12:56) ITCH Iodinated Contrast Media [IV Dye, Iodine Containing] Allergy (Mild, Verified 07/28/24 12:56) ITCH AND RASH latex [LATEX] Allergy (Mild, Verified 07/28/24 12:56) RASH Medication List - Last Reconciled 07/28/24 by Magali Loya MD amitriptyline 50 mg PO BEDTIME buspirone 15 mg PO BID cholecalciferol (vitamin D3) 25 mcg PO DAILY 90 days clonazepam 1 mg PO BEDTIME PRN dicyclomine 20 mg PO QID 30 days escitalopram oxalate 10 mg PO DAILY fluticasone furoate 50 mcg/actuation (Arnuity Ellipta) 1 inh inhalation DAILY 30 days gabapentin 600 mg PO TID 90 days lactulose 10 grams (15 mL) PO BEDTIME PRN 30 days lidocaine 5% 1 patch topical DAILY 30 days mecobalamin (vitamin B12) 1,000 mcg PO DAILY meloxicam 15 mg PO DAILY 90 days methocarbamol 750 mg PO Q8H 30 days multivitamin with folic acid 400 mcg (Tab-A-Ananda) 1 tab PO DAILY 90 days ondansetron 4 mg PO Q8H PRN pantoprazole 40 mg PO DAILY prazosin 5 mg PO BEDTIME semaglutide (weight loss) (Wegovy) 1.7 mg (0.75 mL) subcut QWEEK Shower Chair As directed simethicone 80 mg PO .four times a day PRN 30 days sucralfate 1 g PO BID 30 days sumatriptan succinate 50 mg PO DAILY PRN Ventolin HFA 90 mcg/actuation (albuterol sulfate) 2 puffs inhalation Q6H PRN 30 days NS vitamin A palmitate 10,000 units PO DAILY Tobacco use date assessed: 07/28/24 Dental Screening Dental Screen Date: 07/28/24 Did you have a dental visit in the last 12 months?: No Did you have a dental problem in the last 6 months where you did not have access to dental care?: No Was dental information given to patient?: Patient has dentist HPI HPI Comments History of Present Illness Details The patient is a 58-year-old female presenting for her physical exam. She has medication management needs concerning her obesity. She previously underwent bariatric surgery, including a lab sleeve gastrectomy in 2019 and gastric banding removal due to bleeding complications. The patient reports ongoing difficulties with managing her weight post-surgery, citing increased hunger following prior injection therapy usage. Following lifestyle changes and diet modifications proved inadequate, medication interventions were revisited. Advised to follow a reduced calorie diet and increase physical activity. Walks with a cane for gait stability due to bilateral knee pain and low back pain and your have x-rays. The patient mentions facing limitations with phentermine, particularly due to potential hypertension risks and a preference for avoiding long-term usage. Short-term usage was discussed alongside adjunctive Topamax treatment, with interest emphasized in assisting weight management and controlling migraines. She highlights ongoing symptoms of osteoarthritis and expresses concern for limited mobility due to knee pain and frequent stiffness. Depression and anxiety are currently managed with medications, although she seeks to ensure effective control through ongoing psychiatric care. - Bone density scan in November 2022 showe d normal results; no osteopenia or osteoporosis. - Last mammogram appointment missed due to discomfort experienced previously; advised to reschedule. - Tetanus vaccine status unclear; patien t encouraged to receive it if not current. - Confirmed vaccination for shingles in 2022. - Yearly flu vaccines administered. - Hepatitis vaccination status up to kezia e. - Last colonoscopy in 2015 showed a poly p, no recent follow-up recorded. - Discussed ongoing weight reduction thr ough reduced-calorie diet and physical activity. [facility] Medical History (Updated 07/28/24 @ 13:16 by Magali Loya MD) Osteoarthritis of lumbar spine Physical exam Polyarthralgia Mild recurrent major depression Hand pain Obesity with body mass index (BMI) of 30.0 to 39.9 Pre-diabetes Osteoarthritis of back Low back pain Intestinal malabsorption following gastrectomy Thiamine deficiency B12 deficiency Hypovitaminosis D Migraines Insomnia Fibromyalgia Pure hypercholesterolemia Essential hypertension Neuropathy Surgical History S/P ANA-BSO Hx of cholecystectomy S/P laparoscopic sleeve gastrectomy History of repair of hiatal hernia History of sleeve gastrectomy Hx of section History of removal of laparoscopic gastric banding device Hx of laparoscopic adjustable gastric banding Family History Father Murder Mother Diabetes Hypertension Brother Diabetes Hypertension Son No problems noted. Other Mental health disorder Social History Housing: Apartment Housing Other:: complex housing Alcohol intake: never Patient Tobacco Use Status: Former Tobacco user Tobacco use type: Cigarette e-Cigarette/Vaping Use: Never Used Second Hand Smoke Exposure: No service: No Current occupational status: disabled Cognitive needs: Yes Hearing needs: No Vision needs: No Questionnaire PHQ-9 Over the last 2 weeks, how often have you been bothered by any of the following problems? 1. Little interest or pleasure in doing things: not at all 2. Feeling down, depressed, or hopeless: not at all 3. Trouble falling or staying asleep, or sleeping too much: not at all 4. Feeling tired or having little energy: not at all 5. Poor appetite or overeating: not at all 6. Feeling bad about yourself - or that you are a failure or have let yourself or your family down: not at all 7. Trouble concentrating on things, such as reading the newspaper or watching television: not at all 8. Moving or speaking so slowly that other people could have noticed. Or the opposite - being so fidgety or restless that you have been moving around a lot more than usual: not at all 9. Thoughts that you would be better off or of hurting yourself in some way: not at all Total score: 0 Depression Screening Interpretation: Negative Depression Screening Done: Yes 40213 - PHQ-9 Billing: Yes Source: Developed by Drs. Kelton Felix, Dede Zhang, Dov Mera and colleagues, with an educational sudarshan from [employer]. Thrive Questionnaire Date Thrive assessed: 07/22/24 I am a: Patient What is your living situation today?: I have a steady place to live Within the past 12 months, did the food you bought not last and you didn't have the money to get more?: I choose not to answer this question Within the past 12 months, did you worry whether your food would run out before you got money to buy more?: I choose not to answer this question Do you have trouble paying for medicines?: No Do you have trouble getting transportation to medical appointments?: Yes Do you have trouble paying your heating and electricity bill?: No Do you have trouble taking care of your child, family member or friend?: I choose not to answer this question Do you have trouble with day-to-day activities such as bathing, preparing meals, shopping, managing finances, etc.?: Yes Are you currently unemployed and looking for a job?: I choose not to answer this question Are you interested in more education?: I choose not to answer this question Please select the resources that you would like help with: None Currently or been in a relationship where the following occur: I choose not to answer THRIVE Score: 1 AUDIT C Alcohol Use Questionnaire (AUDIT-C) 1. How often do you have a drink containing alcohol?: Never Total Score: 0 Score Reviewed/Action Taken: No LUIS-7 AMB Questionnaire LUIS-7 Date LUIS - 7 assessed: 07/28/24 Feeling nervous, anxious, or on edge: 1 = Several days Not being able to stop or control worryin = Several days Worrying too much about different things: 1 = Several days Trouble relaxin = More than half the days Being so restless that it is hard to sit still: 0 = Not at all Becoming easily annoyed or irritable: 1 = Several days Feeling afraid as if something awful might happen: 1 = Several days Total LUIS-7 score (0-4 normal; 5-9 mild; 10-14 moderate; 15-21 severe): 7 Source: Developed by Drs. Kelton Felix, Dede Zhang, Dov Mera and colleagues, with an educational sudarshan from [employer]. LUIS-7 Assessment Billing LUIS-7 Assessment Tool: LUIS-7 Assessment 64584 Review of Systems Const All systems reviewed & are unremarkable except as noted in HPI and below Card Denies chest pain at rest, Denies chest pain with activity, Denies edema, Denies irregular heart rhythm, Denies claudication, Denies dyspnea, Denies dyspnea on exertion, Denies orthopnea, Denies paroxysmal nocturnal dyspnea and Denies slow heart rate Resp Denies cough, Denies dyspnea and Denies dyspnea on exertion GI Denies abdominal pain, Denies change in bowel habits, Denies excessive flatus, Denies nausea and Denies vomiting Denies urinary incontinence, Denies urinary hesitancy and Denies urinary urgency Musc Denies atrophy, Denies deformity and Denies limited range of motion Skin/Breast Denies bleeding lesions, Denies changing lesions and Denies rash Physical exam (Primary Care) Vital Signs: Last Vital Signs BP 124/80 07/28/24 12:46 BMI result Body Mass Index 31.4 BMI Assessment/Plan discussion: High BMI High, discussed plan: lifestyle, weight reduction, dietary and physical activity Tobacco/Smoking Status: Tobacco use Status Tobacco use date assessed 07/28/24 07/28/24 12:52 Patient Tobacco Use Status Former Tobacco user 07/28/24 12:52 Tobacco use type Cigarette 07/28/24 12:52 e-Cigarette/Vaping Use Never Used 07/28/24 12:52 PHQ-9: PHQ-9 Score PHQ-9: Total score 0 07/28/24 13:19 Depression Screening Interpretation: Negative Thrive Assessment: Date of Thrive Assessment Date Thrive assessed 07/22/24 07/28/24 12:52 Currently or been in a relationship where the following occur: I choose not to answer HENMT Head: Yes normal to inspection, Yes normocephalic and Yes atraumatic Ears: external ears normal Eyes General: appearance normal, both eyes and all related structures Eyelids: Yes eyelids normal Conjunctivae: conjunctivae normal Neck Neck: Yes normal visual inspection and Yes supple Resp Effort & Inspection: normal respiratory effort Auscultation: clear to auscultation bilaterally Cardio Jugular venous distension: no JVD Rate: regular rate Rhythm: regular rhythm Heart sounds: S1 normal heart sound present and S2 normal heart sound present GI Inspection: Yes normal to inspection Palpation (GI): Soft to palpation and nontender Auscultation: normal bowel sounds Skin General skin exam: no rashes or lesions noted Neuro General: no focal motor deficits Extrem General: Yes full ROM Psych Appearance: grossly normal Immunizations Boostrix Tdap 2.5 Lf unit-8 mcg-5 Lf/0.5 mL intramuscular syringe Performing Provider: Magali Loya MD [facility] Administered by: JUVENAL Wood on 07/28/24 13:23 Dose Route Admin Location Dispensed Lot Number Expiration Date NDC [employer] 0.5 mL IM Right Deltoid 0.5 mL [id number] 12/09/26 [id number] [employer] VIS Given Date VIS Provided VIS Publication Date 07/28/24 Single Vaccine 24 Eligibility Eligibility Date Funding Source Not [facility] Eligible 07/28/24 Private Coding Level of Care Code Est Pt Level 3 (83233) Est Pt Prev Care 40-64y(09692) Diagnoses Physical exam Z00.00 Mild recurrent major depression F33.0 Osteoarthritis of lumbar spine M47.816 Right knee pain M25.561 Left knee pain M25.562 Obese E66.9 Additional Codes LUIS-7 Assessment Billing - LUIS-7 Assessment Tool: LUIS-7 Assessment 08982 ([id number]) PHQ-9 - 71770 - PHQ-9 Billing: Yes ([id number]) Time Spent (min) 37 Assessment & Plan Assessment & Plan (1) Physical exam: Code(s): Z00.00 - Encounter for general adult medical examination without abnormal findings Category: Medical (2) Mild recurrent major depression: Code(s): F33.0 - Major depressive disorder, recurrent, mild Category: Medical (3) Osteoarthritis of lumbar spine: Code(s): M47.816 - Spondylosis without myelopathy or radiculopathy, lumbar region Category: Medical (4) Right knee pain: Code(s): M25.561 - Pain in right knee Category: Medical (5) Left knee pain: Code(s): M25.562 - Pain in left knee Category: Medical (6) Obese: Code(s): E66.9 - Obesity, unspecified Category: Medical Plan Phentermine is prescribed to assist with weight management while recognizing associated risks. Discussion of Topamax as an additional therapy, beneficial for both migraine management and potential appetite suppression. Short-term phentermine use will be trialed for one month with follow-up required. Lifestyle interventions should continue to emphasize dietary changes and physical activity. The patient should pursue psychiatric follow-up, maintaining current medications for managing depression and anxiety. Continued adherence to me dication regimens for osteoarthritis is advised. Patient was informed and verbally consented to the use of an ambient scribe for clinic note documentation during this visit. I discussed with the patient the potential benefits and risks associated with the prescribed phentermine and Topamax for obesity management, ensuring that she understands the need for short-term use due to potential vascular complications with phentermine. We extensively discussed lifestyle modification as a critical component of weight management. The patient consented to the plan given, acknowledging the need for closer monitoring of side effects and possible uprisings. Continued psychiatric management for depression and anxiety was reinforced. Discussions on the need to obtain authorization for phentermine, and the bureaucratic process involved were clarified. Follow-up recommendations, particularly related to medication efficacy and side effects, were provided. Orders: Orders Lipid Panel Today E78.5 - Hyperlipidemia, unspecified Vitamin B12 and Folate Today E53.8 - Deficiency of other specified B group vitamins Comprehensive [place]. Panel Fast Today K21.9 - Gastro-esophageal reflux disease without esophagitis XR lumbar spine 2-3V Today M47.816 - Spondylosis without myelopathy or radiculopathy, lumbar region TDaP Immunization Today Z23 - Encounter for immunization Vitamin D 25-OH Total Today E55.9 - Vitamin D deficiency, unspecified Complete Blood Count Auto Diff Today D64.9 - Anemia, unspecified IRON PROFILE Today D64.9 - Anemia, unspecified XR knee LT 2V Today M25.562 - Pain in left knee XR knee RT 2V Today M25.561 - Pain in right knee Medications: New topiramate XR 25 mg PO BEDTIME 90 ea 0RF 90 days phentermine must administer 30 minutes before or 1-2 hours after breakfast 18.75 mg (1/2 x 37.5 mg) PO DAILY 15 tabs 0RF 30 days Boostrix Tdap (diphth,pertus(acell),tetanus) 0.5 mL IM ONCE 0.5 mL 0RF NS Z23 - Encounter for immunization Patient Instructions: - Begin phentermine for weight management, limited to a short-term trial of one month. - Use Topamax at night to assist with migraines and potential weight management. - Monitor for any side effects like dizziness, and follow up if they occur. - Maintain lifestyle modifications with diet and exercise as discussed. - Schedule follow-up with psychiatric care provider for ongoing management of depression and anxiety. - Reschedule missed mammogram and consider updating tetanus vaccination. - Be vigilant for any worsening of arthritis symptoms and report if they occur. - Follow recommendations for medication authorization process if issues arise.
== END 2024-07-28 13:20 | disposition home or self-care (01) ==
LOC: HO.HMCH 12:27
PROVIDERS: PCP Internal Medicine; Visit Provider Internal Medicine
DX: Z00.00 Encounter for general adult medical examination without abnormal findings (principal); F33.0 Major depressive disorder, recurrent, mild; M47.816 Spondylosis without myelopathy or radiculopathy, lumbar region; M25.561 Pain in right knee; Z68.31 Body mass index [BMI] 31.0-31.9, adult; E66.9 Obesity, unspecified; M25.562 Pain in left knee; Z23 Encounter for immunization

== ENCOUNTER → 2024-07-28 13:42 | Outpatient (BNV) | payer OTHER, SELFPAY | PROVIDERS: PCP Internal Medicine; Visit Provider Radiology Diagnostic Radiology | DX: M47.895 Other spondylosis, thoracolumbar region (principal); M17.0 Bilateral primary osteoarthritis of knee; M25.461 Effusion, right knee | CPT/HCPCS: 72100; 73560 ==

== ENCOUNTER 2024-10-12 13:33 | Outpatient (AMB) | payer OTHER, SELFPAY ==
--- NOTE | 2024-10-12 13:12 | A.OFFVIS_ITS ---
VS Expanded 10/12/24 13:18 Height 5 ft 3 in Weight 181 lb 6 oz BMI 32.1 Intake Visit Reasons: TV PO LSG 09/17/18 Allergies acetaminophen (From Tylenol) Allergy (Intermediate, Verified 07/28/24 12:56) Hives aloe Allergy (Intermediate, Verified 07/28/24 12:56) Rash duloxetine (From Cymbalta) Allergy (Intermediate, Verified 07/28/24 12:56) Rash, Itching lavender (Lavandula angustifolia) Allergy (Intermediate, Verified 07/28/24 12:56) Rash seafood Allergy (Intermediate, Verified 07/28/24 12:56) Rash Sulfa (Sulfonamide Antibiotics) Allergy (Intermediate, Verified 07/28/24 12:56) rash codeine (From Tylenol-Codeine) Allergy (Mild, Verified 07/28/24 12:56) ITCH Iodinated Contrast Media (IV Dye, Iodine Containing) Allergy (Mild, Verified 07/28/24 12:56) ITCH AND RASH latex (LATEX) Allergy (Mild, Verified 07/28/24 12:56) RASH Medication List - Last Reconciled 10/12/24 by BINTA Vela amitriptyline 50 mg PO BEDTIME buspirone 15 mg PO BID cholecalciferol (vitamin D3) 25 mcg PO DAILY 90 days clonazepam 1 mg PO BEDTIME PRN dicyclomine 20 mg PO QID 30 days escitalopram oxalate 10 mg PO DAILY fluticasone furoate 50 mcg/actuation (Arnuity Ellipta) 1 inh inhalation DAILY 30 days gabapentin 600 mg PO TID 90 days lactulose 10 grams (15 mL) PO BEDTIME PRN 30 days lidocaine 5% 1 patch topical DAILY 30 days mecobalamin (vitamin B12) 1,000 mcg PO DAILY meloxicam 15 mg PO DAILY 90 days methocarbamol 750 mg PO Q8H 30 days multivitamin with folic acid 400 mcg (Tab-A-Ananda) 1 tab PO DAILY 90 days ondansetron 4 mg PO Q8H PRN pantoprazole 40 mg PO DAILY phentermine 18.75 mg (1/2 x 37.5 mg) PO DAILY 30 days prazosin 5 mg PO BEDTIME Shower Chair As directed simethicone 80 mg PO .four times a day PRN 30 days sucralfate 1 g PO BID 30 days sumatriptan succinate 50 mg PO DAILY PRN topiramate XR 25 mg PO BEDTIME 90 days Ventolin HFA 90 mcg/actuation (albuterol sulfate) 2 puffs inhalation Q6H PRN 30 days NS vitamin A palmitate 10,000 units PO DAILY HPI Comments Details: This?is a?58?yo female who is s/p LSG 09/17/2018. Weight at last visit on 06/22/2024 was 188 pounds with a BMI of 33.3, weight today is 181.6 pounds, representing a 6.4 pound weight gain with a BMI today of 32.1.? No complaints of nausea, emesis, abdominal pain or reflux, or constipation. Was changed to phentermine/Topamax by PCP in July. She says it does not work for her. When I asked what she means by this and she says that her weight is fluctuating. Present meal plan includes: she is following a plan from [employer] she has difficulty with exercise due to chronic pain, but does walk PFSH Medical History Osteoarthritis of lumbar spine Physical exam Polyarthralgia Mild recurrent major depression Hand pain Obesity with body mass index (BMI) of 30.0 to 39.9 Pre-diabetes Osteoarthritis of back Low back pain Intestinal malabsorption following gastrectomy Thiamine deficiency B12 deficiency Hypovitaminosis D Migraines Insomnia Fibromyalgia Pure hypercholesterolemia Essential hypertension Neuropathy Surgical History S/P ANA-BSO Hx of cholecystectomy S/P laparoscopic sleeve gastrectomy History of repair of hiatal hernia History of sleeve gastrectomy Hx of section History of removal of laparoscopic gastric banding device Hx of laparoscopic adjustable gastric banding Family History Father Murder Mother Diabetes Hypertension Brother Diabetes Hypertension Son No problems noted. Other Mental health disorder Social History Housing: Apartment Housing Other:: complex housing Alcohol intake: never Patient Tobacco Use Status: Former Tobacco user Tobacco use type: Cigarette e-Cigarette/Vaping Use: Never Used Second Hand Smoke Exposure: No service: No Current occupational status: disabled Cognitive needs: Yes Hearing needs: No Vision needs: No Telehealth Telehealth Telehealth Platform: Telephone Location of provider rendering services: other Location of patient: address on file Patient Identification confirmed using: Name, : Yes Telehealth method: voice only Patient verbally consented to treatment: Yes Patient verbally consented to billing insurance company: Yes Patient informed of any privacy concerns related to visit: Yes Minutes spent on Phone/Video with Pt.: 16 Assessment & Plan Assessment & Plan (1) S/P laparoscopic sleeve gastrectomy: Code(s): Z98.84 - Bariatric surgery status Category: Medical (2) Obesity with body mass index (BMI) of 30.0 to 39.9: Code(s): E66.9 - Obesity, unspecified Category: Medical Plan Pt not having sufficient weight loss on phentermine despite following a high protein meal plan and walking for exercise. She will have been on phentermine for 3mo as of October 27. She will reach out to us at that time if she is still experiencing difficulty with weight loss. RTC 3mo.
[2024-10-12 13:18] VITALS: BMI 32.1
== END 2024-10-12 13:33 | disposition home or self-care (01) ==
LOC: HO.HBS 13:33
PROVIDERS: PCP Internal Medicine; Visit Provider Physician Assistant Surgical
DX: E66.9 Obesity, unspecified (principal); Z68.32 Body mass index [BMI] 32.0-32.9, adult; Z90.3 Acquired absence of stomach [part of]; Z98.84 Bariatric surgery status
CPT/HCPCS: 99213; G2211

== ENCOUNTER 2025-01-12 15:43 | Outpatient (AMB) | payer OTHER, SELFPAY ==
--- NOTE | 2025-01-12 15:37 | A.OFFVIS_ITS ---
VS Expanded 01/12/25 15:39 Height 5 ft 3 in Weight 182 lb BMI 32.2 Intake Visit Reasons: TELEPHONE PO LSG 09/17/18 Allergies acetaminophen (From Tylenol) Allergy (Intermediate, Verified 07/28/24 12:56) Hives aloe Allergy (Intermediate, Verified 07/28/24 12:56) Rash duloxetine (From Cymbalta) Allergy (Intermediate, Verified 07/28/24 12:56) Rash, Itching lavender (Lavandula angustifolia) Allergy (Intermediate, Verified 07/28/24 12:56) Rash seafood Allergy (Intermediate, Verified 07/28/24 12:56) Rash Sulfa (Sulfonamide Antibiotics) Allergy (Intermediate, Verified 07/28/24 12:56) rash codeine (From Tylenol-Codeine) Allergy (Mild, Verified 07/28/24 12:56) ITCH Iodinated Contrast Media (IV Dye, Iodine Containing) Allergy (Mild, Verified 07/28/24 12:56) ITCH AND RASH latex (LATEX) Allergy (Mild, Verified 07/28/24 12:56) RASH Medication List - Last Reconciled 01/12/25 by BINTA Vela amitriptyline 50 mg PO BEDTIME buspirone 15 mg PO BID cholecalciferol (vitamin D3) 25 mcg PO DAILY 90 days clonazepam 1 mg PO BEDTIME PRN dicyclomine 20 mg PO QID 30 days escitalopram oxalate 10 mg PO DAILY fluticasone furoate 50 mcg/actuation (Arnuity Ellipta) 1 inh inhalation DAILY 30 days gabapentin 600 mg PO TID 90 days lactulose 10 grams (15 mL) PO BEDTIME PRN 30 days lidocaine 5% 1 patch topical DAILY 30 days mecobalamin (vitamin B12) 1,000 mcg PO DAILY meloxicam 15 mg PO DAILY 90 days methocarbamol 750 mg PO Q8H 30 days multivitamin with folic acid 400 mcg (Tab-A-Ananda) 1 tab PO DAILY 90 days ondansetron 4 mg PO Q8H PRN pantoprazole 40 mg PO DAILY phentermine 18.75 mg (1/2 x 37.5 mg) PO DAILY 30 days prazosin 5 mg PO BEDTIME Shower Chair As directed simethicone 80 mg PO .four times a day PRN 30 days sucralfate 1 g PO BID 30 days sumatriptan succinate 50 mg PO DAILY PRN tirzepatide (weight loss) (Zepbound) 2.5 mg (0.5 mL) subcut QWEEK Ventolin HFA 90 mcg/actuation (albuterol sulfate) 2 puffs inhalation Q6H PRN 30 days NS vitamin A palmitate 10,000 units PO DAILY HPI Comments Details: This?is a?58?yo female who is s/p LSG 09/17/2018. Weight at last visit on 10/12/2024 was 181.6 pounds; weight today is 182 pounds with a BMI of 32.2 Was changed to phentermine/Topamax by PCP in July. Currently only on phentermine. She says it has not been effective with weight loss, and also causes tachycardia and palpitations. Present meal plan includes: she is following a plan from [employer] [facility] she has difficulty with exercise due to chronic pain, but does walk PFSH Medical History Osteoarthritis of lumbar spine Physical exam Polyarthralgia Mild recurrent major depression Hand pain Obesity with body mass index (BMI) of 30.0 to 39.9 Pre-diabetes Osteoarthritis of back Low back pain Intestinal malabsorption following gastrectomy Thiamine deficiency B12 deficiency Hypovitaminosis D Migraines Insomnia Fibromyalgia Pure hypercholesterolemia Essential hypertension Neuropathy Surgical History S/P ANA-BSO Hx of cholecystectomy S/P laparoscopic sleeve gastrectomy History of repair of hiatal hernia History of sleeve gastrectomy Hx of section History of removal of laparoscopic gastric banding device Hx of laparoscopic adjustable gastric banding Family History Father Murder Mother Diabetes Hypertension Brother Diabetes Hypertension Son No problems noted. Other Mental health disorder Social History Housing: Apartment Housing Other:: complex housing Alcohol intake: never Patient Tobacco Use Status: Former Tobacco user Tobacco use type: Cigarette e-Cigarette/Vaping Use: Never Used Second Hand Smoke Exposure: No service: No Current occupational status: disabled Cognitive needs: Yes Hearing needs: No Vision needs: No Telehealth Telehealth Telehealth Platform: Telephone Location of provider rendering services: other Location of patient: address on file Patient Identification confirmed using: Name, : Yes Telehealth method: voice only Patient verbally consented to treatment: Yes Patient verbally consented to billing insurance company: Yes Patient informed of any privacy concerns related to visit: Yes Minutes spent on Phone/Video with Pt.: 15 Assessment & Plan Assessment & Plan (1) S/P laparoscopic sleeve gastrectomy: Code(s): Z98.84 - Bariatric surgery status Category: Medical (2) Obesity with body mass index (BMI) of 30.0 to 39.9: Code(s): E66.9 - Obesity, unspecified Category: Medical Plan Pt has been on phentermine for more than 3 months without significant weight loss. In addition she reports tachycardia and palpitations. Recommend discontinuing phentermine. GLP1 agonist would be a better option for her at this point. Rx for Zepbound sent. Discussed need for adequate protein intake while on GLP1s as well as frequent communication with our office. Pt will check in with me weekly and is aware that subsequent Rx will be dependent on frequent communication. RTC 4 months. Medications: New tirzepatide (weight loss) (Zepbound) for 4 weeks 2.5 mg (0.5 mL) subcut QWEEK 2 mL 0RF
[2025-01-12 15:39] VITALS: BMI 32.2
== END 2025-01-12 15:51 | disposition home or self-care (01) ==
LOC: HO.HBS 15:43
PROVIDERS: PCP Internal Medicine; Visit Provider Physician Assistant Surgical
DX: E66.9 Obesity, unspecified (principal); Z68.32 Body mass index [BMI] 32.0-32.9, adult; Z90.3 Acquired absence of stomach [part of]; Z98.84 Bariatric surgery status
CPT/HCPCS: 99213

== ENCOUNTER 2025-01-28 12:30 | Outpatient (AMB) | payer OTHER, SELFPAY ==
[2025-01-28 12:37] VITALS: BP 128/70; PULSE 81; RESP 18; TEMP 36.2; O2SAT 95; BMI 31.6
--- NOTE | 2025-01-28 12:37 | A.OFFPC_ITS ---
Vital Signs 01/28/25 12:37 Height 5 ft 3 in Weight 178 lb 6 oz BMI 31.6 BP 128/70 Blood Pressure Location Lt brachial Position Sitting Respiration 18 Pulse 81 Pulse Source Pulse Oximeter Temp 97.1 F Temp Source Temporal Artery Scan Pulse Oximetry (%) 95 Oxygen Delivery Method Room Air Intake Visit Reasons: depression Die Finisher Required: No Accompanied by: Self / Same As Patient Allergies acetaminophen (From Tylenol) Allergy (Intermediate, Verified 01/28/25 12:56) Hives aloe Allergy (Intermediate, Verified 01/28/25 12:56) Rash duloxetine (From Cymbalta) Allergy (Intermediate, Verified 01/28/25 12:56) Rash, Itching lavender (Lavandula angustifolia) Allergy (Intermediate, Verified 01/28/25 12:56) Rash seafood Allergy (Intermediate, Verified 01/28/25 12:56) Rash Sulfa (Sulfonamide Antibiotics) Allergy (Intermediate, Verified 01/28/25 12:56) rash codeine (From Tylenol-Codeine) Allergy (Mild, Verified 01/28/25 12:56) ITCH Iodinated Contrast Media (IV Dye, Iodine Containing) Allergy (Mild, Verified 01/28/25 12:56) ITCH AND RASH latex (LATEX) Allergy (Mild, Verified 01/28/25 12:56) RASH Medication List - Last Reconciled 01/28/25 by Magali Loya MD amitriptyline 50 mg PO BEDTIME buspirone 15 mg PO BID cholecalciferol (vitamin D3) 25 mcg PO DAILY 90 days clonazepam 1 mg PO BEDTIME PRN cyclobenzaprine 10 mg PO TID dicyclomine 20 mg PO QID 30 days escitalopram oxalate 10 mg PO DAILY fluticasone furoate 50 mcg/actuation (Arnuity Ellipta) 1 inh inhalation DAILY 30 days gabapentin 600 mg PO TID 90 days hydrochlorothiazide 25 mg PO DAILY lactulose 10 grams (15 mL) PO BEDTIME PRN 30 days lidocaine 5% 1 patch topical DAILY 30 days mecobalamin (vitamin B12) 1,000 mcg PO DAILY meloxicam 15 mg PO DAILY 90 days methocarbamol 750 mg PO Q8H 30 days multivitamin with folic acid 400 mcg (Tab-A-Ananda) 1 tab PO DAILY 90 days ondansetron 4 mg PO Q8H PRN pantoprazole 40 mg PO DAILY phentermine 18.75 mg (1/2 x 37.5 mg) PO DAILY 30 days prazosin 5 mg PO BEDTIME Shower Chair As directed simethicone 80 mg PO .four times a day PRN 30 days sucralfate 1 g PO BID 30 days sumatriptan succinate 50 mg PO DAILY PRN tirzepatide (weight loss) (Zepbound) 2.5 mg (0.5 mL) subcut QWEEK Ventolin HFA 90 mcg/actuation (albuterol sulfate) 2 puffs inhalation Q6H PRN 30 days NS vitamin A palmitate 10,000 units PO DAILY Tobacco use date assessed: 01/28/25 Dental Screening Dental Screen Date: 01/28/25 Did you have a dental visit in the last 12 months?: No Did you have a dental problem in the last 6 months where you did not have access to dental care?: No Was dental information given to patient?: No HPI HPI Comments History of Present Illness Details The patient is a 59-year-old female presenting for follow-up of hypertension and fibromyalgia. Her blood pressure is well-controlled at 128/70 mmHg with the use of hydrochlorothiazide. She has a history of fibromyalgia, which is being managed with current medications. She complains of some memory loss that is most likely secondary to her medications including clonazepam and gabapentin. I will send her to Neurology and he weighs. She walks with a cane for gait stability due to chronic low back pain. She does have mild major depression with anxiety follow by Psychiatry. The patient reports multiple allergies, including reactions to Tylenol, aloe, Cymbalta, lavender, seafood, sulfa, codeine, contrast, and latex, which manifest as hives or rash. She is currently taking amitriptyline for migraines and depression, buspirone for anxiety, vitamin D, clonazepam prescribed by psychiatry, cyclobenzaprine for muscle relaxation, dicyclomine for gastrointestinal issues, escitalopram for insomnia, depression, and anxiety, and Arnuity for asthma. The patient has been experiencing Dupuytren's contracture, affecting her hands and shoulders, and has been recommended for occupational therapy. She has also been advised to see a hand specialist for further evaluation. Her weight has decreased from 182 pounds in December to 178 pounds, attributed to the use of phentermine for weight management. She is also taking lactulose for constipation and meloxicam for pain management. Preventative care measures include a bone density screening, which was normal in 2022, and a flu vaccination was discussed for future administration. [facility] Medical History (Updated 01/28/25 @ 13:09 by Magali Loya MD) Osteoarthritis of lumbar spine Physical exam Polyarthralgia Mild recurrent major depression Hand pain Obesity with body mass index (BMI) of 30.0 to 39.9 Pre-diabetes Osteoarthritis of back Low back pain Intestinal malabsorption following gastrectomy Thiamine deficiency B12 deficiency Hypovitaminosis D Migraines Insomnia Fibromyalgia Pure hypercholesterolemia Essential hypertension Neuropathy Surgical History S/P ANA-BSO Hx of cholecystectomy S/P laparoscopic sleeve gastrectomy History of repair of hiatal hernia History of sleeve gastrectomy Hx of section History of removal of laparoscopic gastric banding device Hx of laparoscopic adjustable gastric banding Family History Father Murder Mother Diabetes Hypertension Brother Diabetes Hypertension Son No problems noted. Other Mental health disorder Social History Housing: Apartment Housing Other:: complex housing Alcohol intake: never Patient Tobacco Use Status: Former Tobacco user Tobacco use type: Cigarette e-Cigarette/Vaping Use: Never Used Second Hand Smoke Exposure: No service: No Current occupational status: disabled Cognitive needs: Yes Hearing needs: No Vision needs: No Questionnaire PHQ-9 Over the last 2 weeks, how often have you been bothered by any of the following problems? 1. Little interest or pleasure in doing things: not at all 2. Feeling down, depressed, or hopeless: not at all 3. Trouble falling or staying asleep, or sleeping too much: not at all 4. Feeling tired or having little energy: several days 5. Poor appetite or overeating: not at all 6. Feeling bad about yourself - or that you are a failure or have let yourself or your family down: not at all 7. Trouble concentrating on things, such as reading the newspaper or watching television: more than half the days 8. Moving or speaking so slowly that other people could have noticed. Or the opposite - being so fidgety or restless that you have been moving around a lot more than usual: not at all 9. Thoughts that you would be better off or of hurting yourself in some way: not at all Total score: 3 Depression Screening Interpretation: Positive Depression Screening Follow-up: Existing condition, In treatment, Community Mental Health Worker F/U and Follow- up Visit Requested Depression Screening Done: Yes 15542 - PHQ-9 Billing: Yes Source: Developed by Drs. Kelton Felix, Dede Zhang, Dov Mera and colleagues, with an educational sudarshan from [employer] Thrive Questionnaire Date Thrive assessed: 07/22/24 I am a: Patient What is your living situation today?: I have a steady place to live Within the past 12 months, did the food you bought not last and you didn't have the money to get more?: I choose not to answer this question Within the past 12 months, did you worry whether your food would run out before you got money to buy more?: I choose not to answer this question Do you have trouble paying for medicines?: No Do you have trouble getting transportation to medical appointments?: Yes Do you have trouble paying your heating and electricity bill?: No Do you have trouble taking care of your child, family member or friend?: I choose not to answer this question Do you have trouble with day-to-day activities such as bathing, preparing meals, shopping, managing finances, etc.?: Yes Are you currently unemployed and looking for a job?: I choose not to answer this question Are you interested in more education?: I choose not to answer this question Please select the resources that you would like help with: None Currently or been in a relationship where the following occur: I choose not to answer THRIVE Score: 1 AUDIT C Alcohol Use Questionnaire (AUDIT-C) 1. How often do you have a drink containing alcohol?: Never 3. How often do you have six or more drinks on one occasion?: Never Total Score: 0 Score Reviewed/Action Taken: No LUIS-7 AMB Questionnaire LUIS-7 Date LUIS - 7 assessed: 07/28/24 Source: Developed by Drs. Kelton Felix, Dov Diaz and colleagues, with an educational sudarshan from [employer] Review of Systems Const All systems reviewed & are unremarkable except as noted in HPI and below Card Denies chest pain at rest, Denies chest pain with activity, Denies edema, Denies irregular heart rhythm, Denies claudication, Denies dyspnea, Denies dyspnea on exertion, Denies orthopnea, Denies paroxysmal nocturnal dyspnea and Denies slow heart rate Resp Denies cough, Denies dyspnea and Denies dyspnea on exertion GI Denies abdominal pain, Denies change in bowel habits, Denies excessive flatus, Denies nausea and Denies vomiting Physical exam (Primary Care) Vital Signs: Last Vital Signs Temp 97.1 F 01/28/25 12:37 Pulse 81 01/28/25 12:37 Resp 18 01/28/25 12:37 BP 128/70 01/28/25 12:37 Pulse Ox 95 01/28/25 12:37 Oxygen Delivery Method Room Air 01/28/25 12:37 BMI result Body Mass Index 31.6 BMI Assessment/Plan discussion: High BMI High, discussed plan: lifestyle, weight reduction, dietary and physical activity Tobacco/Smoking Status: Tobacco use Status Tobacco use date assessed 01/28/25 01/28/25 12:38 Patient Tobacco Use Status Former Tobacco user 01/28/25 12:38 Tobacco use type Cigarette 01/28/25 12:38 e-Cigarette/Vaping Use Never Used 01/28/25 12:38 PHQ-9: PHQ-9 Score PHQ-9: Total score 3 01/28/25 12:52 Depression Screening Interpretation: Positive Depression Screening Follow-up: Existing condition, In treatment, Community Mental Health Worker F/U and Follow- up Visit Requested Thrive Assessment: Date of Thrive Assessment Date Thrive assessed 07/22/24 01/28/25 12:38 Currently or been in a relationship where the following occur: I choose not to answer Resp Effort & Inspection: normal respiratory effort Auscultation: clear to auscultation bilaterally Cardio Jugular venous distension: no JVD Rate: regular rate Rhythm: regular rhythm Heart sounds: S1 normal heart sound present and S2 normal heart sound present Extrem General: Yes full ROM Coding Level of Care Code Est Pt Level 4 (14163) Complex EM visit Add On G2211 Diagnoses Mild recurrent major depression F33.0 Anxiety F41.9 Essential hypertension I10 Fibromyalgia M79.7 Memory loss R41.3 Additional Codes PHQ-9 - 62324 - PHQ-9 Billing: Yes ([id number]) Time Spent (min) 21 Assessment & Plan Assessment & Plan (1) Mild recurrent major depression: Code(s): F33.0 - Major depressive disorder, recurrent, mild Category: Medical (2) Anxiety: Code(s): F41.9 - Anxiety disorder, unspecified Category: Medical (3) Essential hypertension: Code(s): I10 - Essential (primary) hypertension Category: Medical (4) Fibromyalgia: Code(s): M79.7 - Fibromyalgia Category: Medical (5) Memory loss: Code(s): R41.3 - Other amnesia Category: Medical Plan Plan 1. Essential (primary) hypertension I10 The patient's blood pressure is well-controlled at 128/70 mmHg with hydrochlorothiazide. 2. Fibromyalgia M79.7 The patient continues management of fibromyalgia with current medications. 3. 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 4. Major depressive disorder, recurrent, mild F33.0 HCC 59 The patient is taking amitriptyline and escitalopram for depression management. 5. Anxiety disorder, unspecified F41.9 The patient is taking buspirone and escitalopram for anxiety management. Orders: Orders XR DEXA axial skeleton Today Z78.0 - Asymptomatic menopausal state Lipid Panel 6 Months E78.5 - Hyperlipidemia, unspecified Comprehensive Moriarty. Panel Fast 6 Months I10 - Essential (primary) hypertension Thyroid Stimulating Hormone 6 Months R41.3 - Other amnesia Referrals Orthopedics Referral M24.549 - Contracture, unspecified hand Neurology Referral R41.3 - Other amnesia Medications: New cyclobenzaprine 10 mg PO TID PRN 90 tabs 0RF muscle spasm 30 days hydrochlorothiazide 25 mg PO DAILY 90 tabs 1RF 90 days Refilled meloxicam 15 mg PO DAILY 90 tabs 0RF 90 days Discontinued methocarbamol Discontinued Reason: Patient Completed Course 750 mg PO Q8H 30 days 90 tabs 10RF
== END 2025-01-28 13:11 | disposition home or self-care (01) ==
LOC: HO.HMCH 12:31
PROVIDERS: PCP Internal Medicine; Visit Provider Internal Medicine
DX: F33.0 Major depressive disorder, recurrent, mild (principal); F41.9 Anxiety disorder, unspecified; I10 Essential (primary) hypertension; M79.7 Fibromyalgia; R41.3 Other amnesia

== ENCOUNTER → 2025-01-28 12:30 | Outpatient (BNVA) | payer OTHER, SELFPAY | PROVIDERS: PCP Internal Medicine; Visit Provider Internal Medicine | DX: I10 Essential (primary) hypertension (principal); M79.7 Fibromyalgia; R26.89 Other abnormalities of gait and mobility; M72.0 Palmar fascial fibromatosis [Dupuytren]; F33.0 Major depressive disorder, recurrent, mild; F41.9 Anxiety disorder, unspecified; R41.3 Other amnesia; Z99.89 Dependence on other enabling machines and devices; Z79.899 Other long term (current) drug therapy | CPT/HCPCS: 96127; 99212 ==

== ENCOUNTER 2025-03-25 12:55 | Outpatient (REF) | payer OTHER, SELFPAY ==
--- NOTE | ~2025-03-25 | MM_ITS ---
EXAMINATION: DXA BONE DENSITY AXIAL HISTORY: Z78.0 - Asymptomatic menopausal state TECHNIQUE: [employer] Dual energy absorptiometry (DEXA) of the lumbar spine, total left hip, and femoral neck was performed. COMPARISON: Comparison is made with the prior examination dated 11/21/2022.. FINDINGS: The bone mineral density of the lumbar spine is 1.361 g/cm2, corresponding to a T-score of 1.5, and a Z-score of 2.2. This is indicative of normal bone mineral density. This represents a BMD change of -3.2% compared to the prior exam. This is statistically significant. The bone mineral density of the left total hip is 1.080 g/cm2, corresponding to a T-score of 0.6, and a Z-score of 1.2. This is indicative of normal bone mineral density. This represents a BMD change of -1.3% compared to the prior exam. This is not statistically significant. The bone mineral density of the left femoral neck is 0.893 g/cm2, corresponding to a T-score of -0.4, and a Z-score of .5. This is indicative of normal bone mineral density. This represents a BMD change of 1.2% compared to the prior exam. MM/XR DEXA axial skeleton IMPRESSION: Based on bone mineral density, and according to World Health Organization (WHO) criteria, the diagnosis is consistent with normal bone mineral density. Statistically, 68% of repeat scans fall within 1 SD (+/- 0.010 g/cm2 for AP spine L1-L4) and 1 SD (+/- 0.012 g/cm2 for femur total) FRAX is a trademark of the [employer]'s [employer] [facility] Met[employer], a World Health Organization (WHO) Collaborating Center. Electronically signed by: Kelton Canela MD 03/25/2025 01:29 PM [facility]
== END 2025-03-25 12:56 | disposition home or self-care (01) ==
LOC: HO.MAMMO 12:55
PROVIDERS: PCP Internal Medicine; Visit Provider Internal Medicine
DX: Z78.0 Asymptomatic menopausal state (principal)
CPT/HCPCS: 77080

== ENCOUNTER → 2025-03-25 14:30 | Outpatient (BNV) | payer OTHER, SELFPAY | PROVIDERS: PCP Internal Medicine; Visit Provider Radiology Diagnostic Radiology | DX: E28.39 Other primary ovarian failure (principal) | CPT/HCPCS: 77080 ==